=== PATIENT | female | born 1930 | race Caucasian/White ===

== ENCOUNTER → 2017-04-01 | Outpatient (CLI) | payer MEDICARE, BC ==
--- NOTE | 2017-04-02 13:58 | MM ---
Reason for exam: screening (asymptomatic). Last mammogram was performed 1 year ago. History: Patient is postmenopausal. Family history of breast cancer in maternal cousin and breast cancer in paternal grandmother at age 50. Took estrogen for 5 years. Took progesterone for 5 years. Physical Findings: A clinical breast exam by your physician is recommended on an annual basis and results should be correlated with mammographic findings. MG 3D Screening Mammo W/Cad Bilateral CC and MLO view(s) were taken. Prior study comparison: March 29, 2016, bilateral MG 3d screening mammo w/cad. There are scattered fibroglandular densities. Calcifications present bilaterally. No grouped calcifications. No significant changes when compared with prior studies. ASSESSMENT: Benign, BI-RAD 2 RECOMMENDATION: Routine screening mammogram of the right breast in 1 year.
== END | disposition home or self-care (01) ==
LOC: RADMAMWWP 14:33
PROVIDERS: ATTEND Internal Medicine
DX: Z12.31 Encounter for screening mammogram for malignant neoplasm of breast (principal)
CPT/HCPCS: 77063; G0202

== ENCOUNTER → 2017-05-08 | Outpatient (CLI) | payer MEDICARE, BC ==
[2017-05-08 10:49] LABS: ALT 27 U/L (9-52); AST 21 U/L (14-36); Alkaline Phosphatase 70 U/L (38-126); Anion Gap 7 mmol/L; Blood Urea Nitrogen 16 mg/dL (7-17); Calcium 10.5 mg/dL (8.4-10.2); Carbon Dioxide 26 mmol/L (22-30); Chloride 110 mmol/L (98-107); Glucose 81 mg/dL (74-99); Non-African American GFR(MDRD) 53 (>60 ml/min/1.73 sqM); Potassium 4.2 mmol/L (3.5-5.1); Sodium 143 mmol/L (137-145); Total Bilirubin 0.5 mg/dL (0.2-1.3); Total Protein 7.6 g/dL (6.3-8.2)
== END | disposition home or self-care (01) ==
LOC: LABWHC1 09:58
PROVIDERS: ATTEND Internal Medicine Endocrinology, Diabetes & Metabolism
DX: E21.0 Primary hyperparathyroidism (principal); E03.8 Other specified hypothyroidism
CPT/HCPCS: 36415; 80053; 83970; 84443

== ENCOUNTER → 2017-11-06 | Outpatient (CLI) | payer MEDICARE, BC ==
[2017-11-06 16:25] LABS: ALT 24 U/L (9-52); AST 23 U/L (14-36); Albumin 3.3 g/dL (3.5-5.0); Alkaline Phosphatase 65 U/L (38-126); Anion Gap 9 mmol/L; Blood Urea Nitrogen 14 mg/dL (7-17); Calcium 10.3 mg/dL (8.4-10.2); Carbon Dioxide 27 mmol/L (22-30); Chloride 109 mmol/L (98-107); Glucose 95 mg/dL (74-99); Sodium 145 mmol/L (137-145); Total Bilirubin 0.4 mg/dL (0.2-1.3); Total Protein 7.6 g/dL (6.3-8.2)
[2017-11-07 01:04] LABS: Vitamin D 25 Hydroxy 28.5 ng/mL (30.0-100.0)
[2017-11-07 02:20] LABS: Parathyroid Hormone Intact 222.5 pg/mL (14.0-72.0)
== END | disposition home or self-care (01) ==
LOC: LABWHC1 15:31
PROVIDERS: ATTEND Internal Medicine Endocrinology, Diabetes & Metabolism
DX: E03.8 Other specified hypothyroidism (principal); E21.0 Primary hyperparathyroidism
CPT/HCPCS: 36415; 80053; 82306; 83970; 84443

== ENCOUNTER → 2018-04-21 | Outpatient (CLI) | payer MEDICARE, BC ==
[2018-04-21 12:16] LABS: Albumin 3.4 g/dL (3.5-5.0); Calcium 10.7 mg/dL (8.4-10.2); Potassium 4.1 mmol/L (3.5-5.1); Total Bilirubin 0.5 mg/dL (0.2-1.3)
[2018-04-21 16:44] LABS: Parathyroid Hormone Intact 185.7 pg/mL (14.0-72.0); Vitamin D 25 Hydroxy 27.2 ng/mL (30.0-100.0)
== END | disposition home or self-care (01) ==
LOC: LABWHC1 10:58
PROVIDERS: ATTEND Internal Medicine Endocrinology, Diabetes & Metabolism
DX: E21.0 Primary hyperparathyroidism (principal); E03.8 Other specified hypothyroidism
CPT/HCPCS: 36415; 80053; 82306; 83970; 84443

== ENCOUNTER → 2018-10-24 | Outpatient (CLI) | payer MEDICARE, BC ==
[2018-10-24 18:36] LABS: Vitamin D 25 Hydroxy 38.1 ng/mL (30.0-100.0)
[2018-10-24 18:41] LABS: Albumin 3.1 g/dL (3.80-4.90); Albumin/Globulin Ratio 0.76 (1.20-2.10); Anion Gap 3.7 mmol/L (4.00-12.00); Calcium 9.9 mg/dL (8.7-10.3); Carbon Dioxide 27.3 mmol/L (21.6-31.8); Globulin 4.1 g/dL (1.6-3.3); Potassium 3.7 mmol/L (3.5-5.5); Total Bilirubin 0.4 mg/dL (0.2-1.2); Total Protein 7.2 g/dL (6.2-8.2)
== END ==
LOC: LABWHC1 11:34
PROVIDERS: ATTEND Internal Medicine Endocrinology, Diabetes & Metabolism
DX: E21.0 Primary hyperparathyroidism (principal); E03.8 Other specified hypothyroidism
CPT/HCPCS: 36415; 80053; 82306; 83970; 84443

== ENCOUNTER 2018-11-06 22:35 | Emergency (ER) | payer MEDICARE, BC ==
[2018-11-06 22:42] VITALS: TEMP 98.1
--- NOTE | 2018-11-06 23:14 | ED ---
Fall HPI - General Chief Complaint: Fall Stated Complaint: Fall Time Seen by Provider: 11/06/18 22:43 Source: patient Mode of arrival: wheelchair - History of Present Illness Initial Comments: This patient is an 88-year-old woman who presents to be evaluated for injury to the right hip. She states that she had been walking through the house using her walker when she tripped over the wheel. She felt to the right side landing on her hip and right arm. She states that the arm is not having any pain but there is pain in the right hip. The pain is mainly along the lateral aspect and only when she is standing. She states that there is no pain at rest or if she is lying down. She denies any injury to the head or neck, back, chest or abdomen. None of the other extremities have any pain. MD Complaint: fall -: hour(s) Fall From: standing When Fall Occurred: 1-[address] Fall Occurred: home Loss of Consciousness: none Prolonged Down Time?: no Symptoms Prior to Fall: none Severity: mild Quality: aching Context: tripped/slipped Associated Symptoms: denies - Related Data Home Medications Medication Instructions Recorded Confirmed Aspirin 81 mg PO DAILY 06/01/14 11/06/18 Donepezil [Aricept] 10 mg PO DAILY 11/06/18 11/06/18 Ibuprofen [Motrin Ib] 200 mg PO Q4H PRN 11/06/18 11/06/18 Isosorbide Mononitrate ER [Imdur] 60 mg PO DAILY 11/06/18 11/06/18 Levothyroxine Sodium [Synthroid] 75 mcg PO MOTUWETHFRSA 11/06/18 11/06/18 Meloxicam 7.5 mg PO DAILY 11/06/18 11/06/18 traMADol HCL [Ultram] 50 mg PO BID PRN 11/06/18 11/06/18 Allergies Allergy/AdvReac Type Severity Reaction Status Date / Time prednisone Allergy Swelling Verified 11/06/18 22:55 ropinirole HCl [From Requip] Allergy Nausea & Verified 11/06/18 22:55 Vomiting Review of Systems ROS Statement: Those systems with pertinent positive or pertinent negative responses have been documented in the HPI. ROS Other: All systems not noted in ROS Statement are negative. Constitutional: Denies: weakness Eyes: Denies: vision change Respiratory: Denies: dyspnea Cardiovascular: Denies: chest pain, syncope Gastrointestinal: Denies: abdominal pain Musculoskeletal: Reports: arthralgia. 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 History of Any Multi-Drug Resistant Organisms: None Reported Past Surgical History: Cholecystectomy, Tonsillectomy Past Anesthesia/Blood Transfusion Reactions: Motion Sickness Additional Past Anesthesia/Blood Transfusion Reaction / Comment(s): pt stated "hard time coming back out of anesthesia" Past Psychological History: No Psychological Hx Reported Smoking Status: Never smoker Past Alcohol Use History: None Reported Past Drug Use History: None Reported General Exam Limitations: no limitations General appearance: alert, in no apparent distress Head exam: Present: atraumatic, normocephalic Neck exam: Present: normal inspection, full ROM Extremities exam: Present: normal inspection, full ROM, normal capillary refill. Absent: tenderness, pedal edema, calf tenderness Back exam: Present: normal inspection. Absent: vertebral tenderness Neurological exam: Present: alert. Absent: motor sensory deficit Skin exam: Present: warm, dry, intact, normal color. Absent: rash Course Vital Signs 11/06/18 11/06/18 11/07/18 22:38 23:56 01:10 Temperature 98.1 F Pulse Rate 65 64 65 Respiratory 18 16 16 Rate Blood Pressure 197/81 168/85 144/124 O2 Sat by Pulse 99 97 99 Oximetry Disposition Clinical Impression: Fall, Hip injury Disposition: HOME SELF-CARE Condition: Good Instructions: Fall Prevention for Older Adults (ED) Is patient prescribed a controlled substance at d/c from ED?: No Referrals: Alesha Robison MD [Primary Care Provider] - 1-2 days
--- NOTE | 2018-11-06 23:47 | XR ---
EXAMINATION TYPE: XR Hip RT and AP Pelvis DATE OF EXAM: 11/06/2018 COMPARISON: NONE HISTORY: Right hip pain. Fall. TECHNIQUE: A single AP view of the pelvis is obtained. Two views of the right hip are obtained. FINDINGS: The pelvic ring appears intact. I see no definite hip fracture. There is narrowing of hip j oint spaces and more on the right side. Sacroiliac joints are intact. IMPRESSION: No hip fracture seen. Osteoarthritic hip joint space narrowing on the right side.
[2018-11-06 23:58] VITALS: RESP 16
[2018-11-07 01:13] VITALS: PULSE 65
--- NOTE | 2018-11-07 01:13 | CT ---
EXAMINATION TYPE: CT hip RT wo con DATE OF EXAM: 11/07/2018 COMPARISON: None HISTORY: Fall; evaluate for trauma. Hip pain. CT DLP: 353.3 mGycm Automated exposure control for dose reduction was used. FINDINGS: Multiple axial sections were obtained from the level of the mid ileum to the proximal shaft of the fe mur with no contrast. There are small degenerative cysts in the acetabulum. There is hip joint space narrowing. There is sp urring on the femoral head. I see no definite femoral head fracture. There is minor spur formation on the greater trochanter. There is no pathologic fluid collection. The acetabulum appears intact. IMPRESSION: NO HIP FRACTURE SEEN. MODERATE OSTEOARTHRITIS IN THE RIGHT HIP JOINT WITH JOINT SPACE NARROWING AND D EGENERATIVE CYST FORMATION. FEMORAL HEAD SPUR FORMATION.
[2018-11-07 01:30] VITALS: BP 168/85
== END 2018-11-07 01:45 | disposition home or self-care (01) ==
LOC: EC 22:35
DX: S79.911A Unspecified injury of right hip, initial encounter (principal); M19.90 Unspecified osteoarthritis, unspecified site; E07.9 Disorder of thyroid, unspecified; Z85.828 Personal history of other malignant neoplasm of skin; Z79.1 Long term (current) use of non-steroidal anti-inflammatories (NSAID); Z79.899 Other long term (current) drug therapy; Z79.82 Long term (current) use of aspirin; Z88.8 Allergy status to other drugs, medicaments and biological substances; W18.09XA Striking against other object with subsequent fall, initial encounter; Y93.01 Activity, walking, marching and hiking; Y92.009 Unspecified place in unspecified non-institutional (private) residence as the place of occurrence of the external cause
CPT/HCPCS: 73502; 99284

== ENCOUNTER 2018-12-12 23:24 | Inpatient (IN) | payer MEDICARE, BC ==
[2018-12-13] MEDS ORDERED: SODIUM CHLORIDE 0.9% 500 ML 500 ML IV STA (00:01)
[2018-12-13 00:30] LABS: Basophils % (A) 0 %; Eosinophils # (A) 0.1 k/uL (0-0.7); Eosinophils % (A) 2 %; HCT 29.3 % (34.0-46.0); HGB 9.9 gm/dL (11.4-16.0); Lymphocytes # (A) 1.2 k/uL (1.0-4.8); Lymphocytes % (A) 21 %; MCH 34.6 pg (25.0-35.0); MCHC 33.8 g/dL (31.0-37.0); MCV 102.4 fL (80.0-100.0); Macrocytosis Slight; Mean Platelet Volume 6.4; Monocytes # (A) 0.4 k/uL (0-1.0); Monocytes % (A) 7 %; Neutrophils # (A) 3.9 k/uL (1.3-7.7); Neutrophils % (A) 67 %; Platelet Count 224 k/uL (150-450); RBC 2.86 m/uL (3.80-5.40); WBC 5.8 k/uL (3.8-10.6)
[2018-12-13 00:36] LABS: Albumin 3.4 g/dL (3.5-5.0); Magnesium 1.9 mg/dL (1.6-2.3); Potassium 3.5 mmol/L (3.5-5.1); Total Bilirubin 0.6 mg/dL (0.2-1.3)
--- NOTE | 2018-12-13 00:38 | ED ---
General Adult HPI - General Chief complaint: Fall Stated complaint: fall, weakness Time Seen by Provider: 12/12/18 23:42 Source: patient Mode of arrival: wheelchair Limitations: no limitations - History of Present Illness Initial comments: Katty is a pleasant 88 yo female who is brought to the ED today by her daughter for evaluation of generalized weakness. Patient reports that recently she has had no appetite she has not been eating or drinking well she reports that she has occasional bouts of nausea and no desire to eat or drink. She states that yesterday she was walking with her walker when she began to feel very weak, she reports her legs felt like they got all zigzag and then she fell into a sitting position. She states that today she is having some pain in her tailbone. Patient also states she is concerned because she just gotten so weak. Her grandson who is a nurse came over to see her today and stated that he was concerned she was dehydrated and needed to come to the hospital. She reports that she has multiple medical problems and takes no medications. - Related Data Home Medications Medication Instructions Recorded Confirmed Aspirin 81 mg PO DAILY 06/01/14 12/12/18 Donepezil [Aricept] 10 mg PO DAILY 11/06/18 12/12/18 Ibuprofen [Motrin Ib] 200 mg PO Q4H PRN 11/06/18 12/12/18 Isosorbide Mononitrate ER [Imdur] 60 mg PO DAILY 11/06/18 12/12/18 Levothyroxine Sodium [Synthroid] 75 mcg PO MOTUWETHFRSA 11/06/18 12/12/18 Meloxicam 7.5 mg PO DAILY 11/06/18 12/12/18 traMADol HCL [Ultram] 50 mg PO BID PRN 11/06/18 12/12/18 Allergies Allergy/AdvReac Type Severity Reaction Status Date / Time prednisone Allergy Swelling Verified 12/12/18 23:46 ropinirole HCl [From Requip] AdvReac Nausea & Verified 12/12/18 23:46 Vomiting Sulfa (Sulfonamide AdvReac Unknown Verified 12/12/18 23:46 Antibiotics) Review of Systems ROS Statement: Those systems with pertinent positive or pertinent negative responses have been documented in the HPI. ROS Other: All systems not noted in ROS Statement are negative. 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 Patient is nontoxic and well- hydrated and is in no distress. HENT: Normocephalic, Atraumatic. EYES: PERRL, EOMI PULMONARY: Unlabored respirations. No audible rales rhonchi or wheezing was noted. CARDIOVASCULAR: There is a regular rate and rhythm without any murmurs gallops or rubs. ABDOMEN: Soft and nontender with normal bowel sounds. SKIN: Skin is clear with no lesions or rashes and otherwise unremarkable. : Deferred NEUROLOGIC: Patient is alert and oriented x3. Moving all extremities spontaneously MUSCULOSKELETAL: Normal extremities with adequate strength and full range of motion. No lower extremity swelling or edema. No calf tenderness. PSYCHIATRIC: Normal psychiatric evaluation. Limitations: no limitations Limitations: no limitations Course Vital Signs 12/12/18 12/13/18 12/13/18 23:31 00:50 01:17 Temperature 98.6 F Pulse Rate 79 70 74 Respiratory 20 16 16 Rate Blood Pressure 203/101 191/101 185/99 O2 Sat by Pulse 98 92 L Oximetry 12/13/18 01:58 Temperature 97.6 F Pulse Rate 78 Respiratory 17 Rate Blood Pressure 199/94 O2 Sat by Pulse 100 Oximetry EKG Findings - EKG Comments: EKG Findings:: EKG obtained at 12:32 AM rate is 72 rhythm is sinus there is a normal axis there are normal intervals NC 142, QRS 102, QTc is 416. There are no acute ST elevations or depressions is no evidence of acute ischemia or infarction. Medical Decision Making - Medical Decision Making The patient was seen and evaluated history was obtained from the patient and children at bedside Patient appears dehydrated and is complaining of generalized weakness Labs and imaging were ordered labs is some significant abnormalities including acute kidney injury, hypercalcemia X-ray does reveal a superior pubic rami fracture Urinalysis suggestive of urinary tract infection culture will be obtained Rocephin was ordered At this time patient will be admitted for acute kidney injury and hypercalcemia , orthopedic surgery will be consult it for evaluation the superior pubic rami fracture though the patient has been ambulatory since her fall. Altered were updated and are agreeable with this plan. - Lab Data Result diagrams: 12/13/18 00:01 12/12/18 23:55 Lab Results 12/12/18 12/12/18 12/13/18 Range/Units 23:55 23:55 00:01 WBC 5.8 (3.8-10.6) k/uL RBC 2.86 L (3.80-5.40) m/uL Hgb 9.9 L (11.4-16.0) gm/dL Hct 29.3 L (34.0-46.0) % MCV 102.4 H (80.0-100.0) fL MCH 34.6 (25.0-35.0) pg MCHC 33.8 (31.0-37.0) g/dL RDW 14.0 (11.5-15.5) % Plt Count 224 (150-450) k/uL Neutrophils % 67 % Lymphocytes % 21 % Monocytes % 7 % Eosinophils % 2 % Basophils % 0 % Neutrophils # 3.9 (1.3-7.7) k/uL Lymphocytes # 1.2 (1.0-4.8) k/uL Monocytes # 0.4 (0-1.0) k/uL Eosinophils # 0.1 (0-0.7) k/uL Basophils # 0.0 (0-0.2) k/uL Macrocytosis Slight Sodium 136 L (137-145) mmol/L Potassium 3.5 (3.5-5.1) mmol/L Chloride 100 (98-107) mmol/L Carbon Dioxide 30 (22-30) mmol/L Anion Gap 6 mmol/L BUN 36 H (7-17) mg/dL Creatinine 2.36 H (0.52-1.04) mg/dL Est GFR (CKD-EPI)AfAm 21 (>60 ml/min/1.73 sqM) Est GFR (CKD-EPI)NonAf 18 (>60 ml/min/1.73 sqM) Glucose 106 H (74-99) mg/dL Calcium 17.5 H* (8.4-10.2) mg/dL Magnesium 1.9 (1.6-2.3) mg/dL Total Bilirubin 0.6 (0.2-1.3) mg/dL AST 30 (14-36) U/L ALT 20 (9-52) U/L Alkaline Phosphatase 107 (38-126) U/L Creatine Kinase 64 (30-135) U/L Troponin I 0.041 H* (0.000-0.034) ng/mL Total Protein 9.0 H (6.3-8.2) g/dL Albumin 3.4 L (3.5-5.0) g/dL TSH 1.760 (0.465-4.680) mIU/L Urine Color Urine Appearance (Clear) Urine pH (5.0-8.0) Ur Specific Eads (1.001-1.035) Urine Protein (Negative) Urine Glucose (UA) (Negative) Urine Ketones (Negative) Urine Blood (Negative) Urine Nitrite (Negative) Urine Bilirubin (Negative) Urine Urobilinogen (<2.0) mg/dL Ur Leukocyte Esterase (Negative) Urine RBC (0-5) /hpf Urine WBC (0-5) /hpf Ur Squamous Epith Cells (0-4) /hpf Urine Bacteria (None) /hpf Hyaline Casts (0-2) /lpf Urine Mucus (None) /hpf 12/13/18 Range/Units 00:25 WBC (3.8-10.6) k/uL RBC (3.80-5.40) m/uL Hgb (11.4-16.0) gm/dL Hct (34.0-46.0) % MCV (80.0-100.0) fL MCH (25.0-35.0) pg MCHC (31.0-37.0) g/dL RDW (11.5-15.5) % Plt Count (150-450) k/uL Neutrophils % % Lymphocytes % % Monocytes % % Eosinophils % % Basophils % % Neutrophils # (1.3-7.7) k/uL Lymphocytes # (1.0-4.8) k/uL Monocytes # (0-1.0) k/uL Eosinophils # (0-0.7) k/uL Basophils # (0-0.2) k/uL Macrocytosis Sodium (137-145) mmol/L Potassium (3.5-5.1) mmol/L Chloride (98-107) mmol/L Carbon Dioxide (22-30) mmol/L Anion Gap mmol/L BUN (7-17) mg/dL Creatinine (0.52-1.04) mg/dL Est GFR (CKD-EPI)AfAm (>60 ml/min/1.73 sqM) Est GFR (CKD-EPI)NonAf (>60 ml/min/1.73 sqM) Glucose (74-99) mg/dL Calcium (8.4-10.2) mg/dL Magnesium (1.6-2.3) mg/dL Total Bilirubin (0.2-1.3) mg/dL AST (14-36) U/L ALT (9-52) U/L Alkaline Phosphatase (38-126) U/L Creatine Kinase (30-135) U/L Troponin I (0.000-0.034) ng/mL Total Protein (6.3-8.2) g/dL Albumin (3.5-5.0) g/dL TSH (0.465-4.680) mIU/L Urine Color Light Yellow Urine Appearance Cloudy H (Clear) Urine pH 5.5 (5.0-8.0) Ur Specific Eads 1.011 (1.001-1.035) Urine Protein Trace H (Negative) Urine Glucose (UA) Negative (Negative) Urine Ketones Negative (Negative) Urine Blood Small H (Negative) Urine Nitrite Positive H (Negative) Urine Bilirubin Negative (Negative) Urine Urobilinogen <2.0 (<2.0) mg/dL Ur Leukocyte Esterase Large H (Negative) Urine RBC 2 (0-5) /hpf Urine WBC 45 H (0-5) /hpf Ur Squamous Epith Cells 3 (0-4) /hpf Urine Bacteria Few H (None) /hpf Hyaline Casts 3 H (0-2) /lpf Urine Mucus Rare H (None) /hpf Disposition Clinical Impression: Acute kidney injury, Hypercalcemia, Dehydration, Urinary tract infection, Fracture of superior pubic ramus, Fall Disposition: ADMITTED IP TO THIS HOSP Condition: Serious Is patient prescribed a controlled substance at d/c from ED?: No
[2018-12-13 00:39] LABS: Appearance,Urine Cloudy (Clear); Bacteria,Urine Few /hpf; Bilirubin,Urine Negative (Negative); Blood,Urine Small (Negative); Color,Urine Light Yellow; Glucose,Urine (UA) Negative (Negative); Hyaline Casts,Urine 3 /lpf (0-2); Ketones,Urine Negative (Negative); Leukocyte Esterase,Urine Large (Negative); Mucus,Urine Rare /hpf; Nitrite,Urine Positive (Negative); PH, Urine 5.5 (5.0-8.0); Protein,Urine Trace (Negative); RBC,Urine 2 /hpf (0-5); Specific Gravity,Urine 1.011 (1.001-1.035); Squamous Epithelial Cell,Urine 3 /hpf (0-4); Urobilinogen,Urine <2.0 mg/dL (<2.0)
[2018-12-13 00:51] LABS: Calcium 17.5 mg/dL (8.4-10.2)
--- NOTE | 2018-12-13 01:10 | XR ---
EXAM: XR Sacrum and Coccyx, 2 or more Views CLINICAL HISTORY: ITS.REASON XR Reason: fall, pain TECHNIQUE: Frontal and lateral views of the sacrum and coccyx. COMPARISON: None. FINDINGS: Sacrum/coccyx: Unremarkable as visualized. No acute fracture. Vertebrae: Osteoporosis. Disc spaces: Degenerative changes seen in the lower lumbar spine. Other bones/joints: Right superior pubic ramus fracture. Soft tissues: Unremarkable. IMPRESSION: Right superior pubic ramus fracture. Consider evaluation with CT if there is persistent clinical concern for sacrum or coccyx fracture.
--- NOTE | 2018-12-13 01:12 | XR ---
EXAM: XR Lumbar Spine, 2 or 3 Views CLINICAL HISTORY: ITS.REASON XR Reason: Pain TECHNIQUE: Frontal and lateral views of the lumbar spine. COMPARISON: None. FINDINGS: Vertebrae: Osteoporosis. No acute fracture. Normal alignment. Disc spaces: Multilevel degenerative disc disease and facet arthrosis is seen throughout the lumbar spine. Soft tissues: Cholecystectomy clips in the right upper quadrant. IMPRESSION: 1. No definite fracture identified. If there is clinical concern for lumbar spine fracture, recommend evaluation with CT. 2. Multilevel degenerative change of the lumbar spine.
[2018-12-13] MEDS ORDERED: SODIUM CHLORIDE 0.9% 1,000 ML IV ONE (01:22)
[2018-12-13 01:52] LABS: INR 0.9 (<1.2)
[2018-12-13] MEDS ORDERED: cloNIDine HCL 0.1 MG TAB PO STA (02:01)
[2018-12-13 02:10] LABS: Partial Thromboplastin Time 17.8 sec (22.0-30.0)
[2018-12-13] MEDS ORDERED: METOPROLOL TARTRATE 5 MG/5 ML VIAL IVP STA (02:58)
[2018-12-13] MEDS: SODIUM CHLORIDE 0.9% 1,000 ML IV SCH ×3 (04:50→20:55)
[2018-12-13] MEDS: LEVOTHYROXINE 75 MCG TAB PO SCH (06:44)
[2018-12-13] MEDS: ASPIRIN 81 MG PO SCH (08:57)
[2018-12-13] MEDS: ISOSORBIDE MONONITRATE ER 60 MG TAB.ER.24H PO SCH (08:57)
[2018-12-13] MEDS: DONEPEZIL 10 MG TAB PO SCH (08:57)
--- NOTE | 2018-12-13 10:10 | P.CNOR ---
<Emily Talley - Last Filed: 12/13/18 11:24> History of Present Illness - [facility] Consult date: 12/13/18 Consult reason: fracture (Right superior pubic rami fracture) History of present illness: The patient is a pleasant 88-year-old female who presented to the emergency department after experiencing generalized weakness and a fall at home. The patient states that her legs became weak and she fell into a seated position. She was using a walker at the time. The patient states that her grandson is a nurse and he suggested her to come into the hospital for further evaluation of her weakness and possible dehydration. X-ray of the sacrum and coccyx revealed a right superior pubic rami fracture and she was also found to have acute kidney injury and UTI. She was admitted for further evaluation by internal medicine and orthopedic surgery. We're consulted for further management of her superior pubic rami fracture. The patient states that she sees Dr. Roche for her bladder issues and has had multiple UTIs in the past. Today, the patient states that she has no pain at this time laying in bed. She has not tried to get out of bed since admission. She denies any other injuries from the fall including head/neck and her other extremities. She fell in October 2018 and was evaluated in the emergency department where x- rays and CT were performed of the right hip. No fractures were seen at that time. 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 History of Any Multi-Drug Resistant Organisms: None Reported Past Surgical History: Cholecystectomy, Tonsillectomy Past Anesthesia/Blood Transfusion Reactions: Motion Sickness Additional Past Anesthesia/Blood Transfusion Reaction / Comm: pt stated "hard time coming back out of anesthesia" Past Psychological History: No Psychological Hx Reported Smoking Status: Never smoker Past Alcohol Use History: None Reported Past Drug Use History: None Reported - Past Family History Mother Family Medical History: CVA/TIA Father Family Medical History: Cancer, Prostate Disorder Medications and Allergies Home Medications Medication Instructions Recorded Confirmed Type Aspirin 81 mg PO DAILY 06/01/14 12/12/18 History Donepezil [Aricept] 10 mg PO DAILY 11/06/18 12/12/18 History Ibuprofen [Motrin Ib] 200 mg PO Q4H PRN 11/06/18 12/12/18 History Isosorbide Mononitrate ER [Imdur] 60 mg PO DAILY 11/06/18 12/12/18 History Levothyroxine Sodium [Synthroid] 75 mcg PO MOTUWETHFRSA 11/06/18 12/12/18 History Meloxicam 7.5 mg PO DAILY 11/06/18 12/12/18 History traMADol HCL [Ultram] 50 mg PO BID PRN 11/06/18 12/12/18 History Allergies Allergy/AdvReac Type Severity Reaction Status Date / Time prednisone Allergy Swelling Verified 12/12/18 23:46 ropinirole HCl [From Requip] AdvReac Nausea & Verified 12/12/18 23:46 Vomiting Sulfa (Sulfonamide AdvReac Unknown Verified 12/12/18 23:46 Antibiotics) Physical Examination The patient is an 88 year old female that is no acute distress. She is alert and oriented x2. The patient's head is normocephalic and atraumatic. Exam of the cervical spine reveals no pain upon palpation or range of motion, no step- offs noted. Exam of the bilateral upper extremities reveal no obvious deformities or pain upon range of motion. Exam of the left lower extremity reveals no pain upon palpation. Exam of the right lower extremity reveals no obvious deformity. No pain upon palpation to the lateral hip. There is very slight pain upon logrolling and any range of motion of the leg. No pain on anterior pressure of the pelvis. No pain at SI joints. Bilateral calves are soft and nontender. Patient has good foot and ankle motion bilaterally. Neurological and circulatory status is intact. Results X-rays of the sacrum and coccyx dated 12/13/2017 reveals a healing nondisplaced right superior pubic rami and possible healing inferior pubic rami fracture. Pelvic ring appears to be intact. X-rays of the lumbar spine dated 12/13/2017 reveals no definite fracture seen. Multilevel degenerative changes throughout the lumbar spine. X-rays and CT of the right hip and pelvis from November 06 and 2018 revealed a lucency in the right superior and inferior pubic rami, which was not read by the radiologist. - Labs Labs: Abnormal Lab Results - Last 24 Hours (Table) 12/12/18 12/12/18 12/13/18 Range/Units 23:55 23:55 00:01 RBC 2.86 L (3.80-5.40) m/uL Hgb 9.9 L (11.4-16.0) gm/dL Hct 29.3 L (34.0-46.0) % MCV 102.4 H (80.0-100.0) fL APTT (22.0-30.0) sec Sodium 136 L (137-145) mmol/L BUN 36 H (7-17) mg/dL Creatinine 2.36 H (0.52-1.04) mg/dL Glucose 106 H (74-99) mg/dL Calcium 17.5 H* (8.4-10.2) mg/dL Troponin I 0.041 H* (0.000-0.034) ng/mL Total Protein 9.0 H (6.3-8.2) g/dL Albumin 3.4 L (3.5-5.0) g/dL Urine Appearance (Clear) Urine Protein (Negative) Urine Blood (Negative) Urine Nitrite (Negative) Ur Leukocyte Esterase (Negative) Urine WBC (0-5) /hpf Urine Bacteria (None) /hpf Hyaline Casts (0-2) /lpf Urine Mucus (None) /hpf 12/13/18 12/13/18 Range/Units 00:25 01:10 RBC (3.80-5.40) m/uL Hgb (11.4-16.0) gm/dL Hct (34.0-46.0) % MCV (80.0-100.0) fL APTT 17.8 L (22.0-30.0) sec Sodium (137-145) mmol/L BUN (7-17) mg/dL Creatinine (0.52-1.04) mg/dL Glucose (74-99) mg/dL Calcium (8.4-10.2) mg/dL Troponin I (0.000-0.034) ng/mL Total Protein (6.3-8.2) g/dL Albumin (3.5-5.0) g/dL Urine Appearance Cloudy H (Clear) Urine Protein Trace H (Negative) Urine Blood Small H (Negative) Urine Nitrite Positive H (Negative) Ur Leukocyte Esterase Large H (Negative) Urine WBC 45 H (0-5) /hpf Urine Bacteria Few H (None) /hpf Hyaline Casts 3 H (0-2) /lpf Urine Mucus Rare H (None) /hpf H & H 12/13/18 Range/Units 00:01 Hgb 9.9 L (11.4-16.0) gm/dL Hct 29.3 L (34.0-46.0) % Coagulation 12/13/18 Range/Units 01:10 INR 0.9 (<1.2) Result Diagrams: 12/13/18 00:01 12/12/18 23:55 Assessment and Plan (1) Acute kidney injury Current Visit: Yes Status: Acute Code(s): N17.9 - ACUTE KIDNEY FAILURE, UNSPECIFIED SNOMED Code(s): 77406157 (2) Dehydration Current Visit: Yes Status: Acute Code(s): E86.0 - DEHYDRATION SNOMED Code( s): 84389828 (3) Fall Current Visit: Yes Status: Acute Code(s): W19.XXXA - UNSPECIFIED FALL, INITIAL ENCOUNTER SNOMED Code(s): 9276460 (4) Fracture of superior pubic ramus Current Visit: Yes Status: Acute Code(s): S32.519A - FRACTURE OF SUPERIOR RIM OF UNSP PUBIS, INIT FOR CLOS FX SNOMED Code(s): 174137819 (5) Urinary tract infection Current Visit: Yes Status: Acute Code(s): N39.0 - URINARY TRACT INFECTION, SITE NOT SPECIFIED SNOMED Code(s): 15075503 Plan: The clinical and x-ray findings were discussed with the patient. No family is at the bedside this morning. The case was also discussed with Dr. Aguillon. The fractures are subacute and healing is noted. No surgical intervention is warranted at this time. Physical and occupational therapy has been ordered. She may weight-bear as tolerated to the right lower extremity. Pain control with either Ultram or Tylenol. The patient may need skilled rehab upon discharge depending on ambulatory status. We will continue to follow along with internal medicine make further recommendations as needed. <Jaquan Aguillon - Last Filed: 12/13/18 13:27> Results - Labs Labs: Abnormal Lab Results - Last 24 Hours (Table) 12/12/18 12/12/18 12/13/18 Range/Units 23:55 23:55 00:01 RBC 2.86 L (3.80-5.40) m/uL Hgb 9.9 L (11.4-16.0) gm/dL Hct 29.3 L (34.0-46.0) % MCV 102.4 H (80.0-100.0) fL APTT (22.0-30.0) sec Sodium 136 L (137-145) mmol/L BUN 36 H (7-17) mg/dL Creatinine 2.36 H (0.52-1.04) mg/dL Glucose 106 H (74-99) mg/dL Calcium 17.5 H* (8.4-10.2) mg/dL Troponin I 0.041 H* (0.000-0.034) ng/mL Total Protein 9.0 H (6.3-8.2) g/dL Albumin 3.4 L (3.5-5.0) g/dL Urine Appearance (Clear) Urine Protein (Negative) Urine Blood (Negative) Urine Nitrite (Negative) Ur Leukocyte Esterase (Negative) Urine WBC (0-5) /hpf Urine Bacteria (None) /hpf Hyaline Casts (0-2) /lpf Urine Mucus (None) /hpf 12/13/18 12/13/18 Range/Units 00:25 01:10 RBC (3.80-5.40) m/uL Hgb (11.4-16.0) gm/dL Hct (34.0-46.0) % MCV (80.0-100.0) fL APTT 17.8 L (22.0-30.0) sec Sodium (137-145) mmol/L BUN (7-17) mg/dL Creatinine (0.52-1.04) mg/dL Glucose (74-99) mg/dL Calcium (8.4-10.2) mg/dL Troponin I (0.000-0.034) ng/mL Total Protein (6.3-8.2) g/dL Albumin (3.5-5.0) g/dL Urine Appearance Cloudy H (Clear) Urine Protein Trace H (Negative) Urine Blood Small H (Negative) Urine Nitrite Positive H (Negative) Ur Leukocyte Esterase Large H (Negative) Urine WBC 45 H (0-5) /hpf Urine Bacteria Few H (None) /hpf Hyaline Casts 3 H (0-2) /lpf Urine Mucus Rare H (None) /hpf Microbiology - Last 24 Hours (Table) 12/13/18 00:25 Urine Culture - Preliminary Urine,Voided H & H 12/13/18 Range/Units 00:01 Hgb 9.9 L (11.4-16.0) gm/dL Hct 29.3 L (34.0-46.0) % Coagulation 12/13/18 Range/Units 01:10 INR 0.9 (<1.2) Result Diagrams: 12/13/18 00:01 12/12/18 23:55 Assessment and Plan Plan: Reviewed and discussed with Gildardo Talley -- agree with above. The patient was also seen and examined by myself. She states the pain is improving but still has discomfort when ambulating. Still requiring the assistance of a walker. PE: Pelvis is stable to AP and lateral compression-minimal pain with stress. Mild discomfort with circumduction of the right hip. Assessment: Healing right superior and inferior pubic rami fractures Plan: I discussed the radiographic findings with the patient and her daughter. These are stable fractures which show good healing. I recommended continuing physical therapy and weightbearing as tolerated with a walker. I feel she would benefit from some time in a skilled rehab facility for continued therapy, strengthening and gait training. They were in agreement with this plan. Thank you for allowing us to participate in the care of this patient.
[2018-12-13 13:06] LABS: Potassium 3.6 mmol/L (3.5-5.1)
[2018-12-13 13:22] LABS: Calcium 15.3 mg/dL (8.4-10.2)
--- NOTE | 2018-12-13 15:57 | P.HPIM ---
History of Present Illness H&P Date: 12/13/18 Chief Complaint: Fall/weakness 88 yo female who is brought to the ED today by her daughter for evaluation of generalized weakness. Patient reports that recently she has had no appetite she has not been eating or drinking well she reports that she has occasional bouts of nausea and no desire to eat or drink. She states that yesterday she was walking with her walker when she began to feel very weak, she reports her legs felt like they got all zigzag and then she fell into a sitting position. She states that today she is having some pain in her tailbone. Patient also states she is concerned because she just gotten so weak. Her grandson who is a nurse came over to see her today and stated that he was concerned she was dehydrated and needed to come to the hospital. She reports that she has multiple medical problems and takes no medications. 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 History of Any Multi-Drug Resistant Organisms: None Reported Past Surgical History: Cholecystectomy, Tonsillectomy Past Anesthesia/Blood Transfusion Reactions: Motion Sickness Additional Past Anesthesia/Blood Transfusion Reaction / Comment(s): pt stated "hard time coming back out of anesthesia" Past Psychological History: No Psychological Hx Reported Smoking Status: Never smoker Past Alcohol Use History: None Reported Past Drug Use History: None Reported - Past Family History Mother Family Medical History: CVA/TIA Father Family Medical History: Cancer, Prostate Disorder Medications and Allergies Home Medications Medication Instructions Recorded Confirmed Type Aspirin 81 mg PO DAILY 06/01/14 12/12/18 History Donepezil [Aricept] 10 mg PO DAILY 11/06/18 12/12/18 History Ibuprofen [Motrin Ib] 200 mg PO Q4H PRN 11/06/18 12/12/18 History Isosorbide Mononitrate ER [Imdur] 60 mg PO DAILY 11/06/18 12/12/18 History Levothyroxine Sodium [Synthroid] 75 mcg PO MOTUWETHFRSA 11/06/18 12/12/18 History Meloxicam 7.5 mg PO DAILY 11/06/18 12/12/18 History traMADol HCL [Ultram] 50 mg PO BID PRN 11/06/18 12/12/18 History Allergies Allergy/AdvReac Type Severity Reaction Status Date / Time prednisone Allergy Swelling Verified 12/12/18 23:46 ropinirole HCl [From Requip] AdvReac Nausea & Verified 12/12/18 23:46 Vomiting Sulfa (Sulfonamide AdvReac Unknown Verified 12/12/18 23:46 Antibiotics) Physical Exam Vitals: Vital Signs Temp Pulse Pulse Resp BP BP Pulse Ox 12/13/18 11:00 98.2 F 58 L 18 167/75 97 12/13/18 08:35 98.1 F 71 18 162/74 98 12/13/18 04:00 97.9 F 68 18 147/73 98 12/13/18 02:59 98.0 F 70 14 167/86 99 12/13/18 02:45 176/115 12/13/18 02:30 97.9 F 67 18 98 12/13/18 02:25 74 16 191/101 98 12/13/18 01:58 97.6 F 78 17 199/94 100 12/13/18 01:17 74 16 185/99 92 L 12/13/18 00:50 70 16 191/101 12/12/18 23:31 98.6 F 79 20 203/101 98 Intake and Output 12/12/18 12/13/18 12/13/18 22:59 06:59 14:59 Other: Voiding Method Bedpan # Voids 2 Weight 57 kg 57 kg PHYSICAL EXAMINATION: GENERAL: The patient is alert and oriented x3, not in any acute distress. Well developed, well nourished. HEENT: Pupils are round and equally reacting to light. EOMI. No scleral icterus. No conjunctival pallor. Normocephalic, atraumatic. No pharyngeal erythema. No thyromegaly. CARDIOVASCULAR: S1 and S2 present. No murmurs, rubs, or gallops. PULMONARY: Chest is clear to auscultation, no wheezing or crackles. ABDOMEN: Soft, nontender, nondistended, normoactive bowel sounds. No palpable organomegaly. MUSCULOSKELETAL: No joint swelling or deformity. EXTREMITIES: No cyanosis, clubbing, or pedal edema. NEUROLOGICAL: Gross neurological examination did not reveal any focal deficits. SKIN: No rashes. Results CBC & Chem 7: 12/13/18 00:01 12/13/18 12:26 Labs: Abnormal Lab Results - Last 24 Hours (Table) 12/12/18 12/12/18 12/13/18 Range/Units 23:55 23:55 00:01 RBC 2.86 L (3.80-5.40) m/uL Hgb 9.9 L (11.4-16.0) gm/dL Hct 29.3 L (34.0-46.0) % MCV 102.4 H (80.0-100.0) fL APTT (22.0-30.0) sec Sodium 136 L (137-145) mmol/L BUN 36 H (7-17) mg/dL Creatinine 2.36 H (0.52-1.04) mg/dL Glucose 106 H (74-99) mg/dL Calcium 17.5 H* (8.4-10.2) mg/dL Troponin I 0.041 H* (0.000-0.034) ng/mL Total Protein 9.0 H (6.3-8.2) g/dL Albumin 3.4 L (3.5-5.0) g/dL Urine Appearance (Clear) Urine Protein (Negative) Urine Blood (Negative) Urine Nitrite (Negative) Ur Leukocyte Esterase (Negative) Urine WBC (0-5) /hpf Urine Bacteria (None) /hpf Hyaline Casts (0-2) /lpf Urine Mucus (None) /hpf 12/13/18 12/13/18 Range/Units 00:25 01:10 RBC (3.80-5.40) m/uL Hgb (11.4-16.0) gm/dL Hct (34.0-46.0) % MCV (80.0-100.0) fL APTT 17.8 L (22.0-30.0) sec Sodium (137-145) mmol/L BUN (7-17) mg/dL Creatinine (0.52-1.04) mg/dL Glucose (74-99) mg/dL Calcium (8.4-10.2) mg/dL Troponin I (0.000-0.034) ng/mL Total Protein (6.3-8.2) g/dL Albumin (3.5-5.0) g/dL Urine Appearance Cloudy H (Clear) Urine Protein Trace H (Negative) Urine Blood Small H (Negative) Urine Nitrite Positive H (Negative) Ur Leukocyte Esterase Large H (Negative) Urine WBC 45 H (0-5) /hpf Urine Bacteria Few H (None) /hpf Hyaline Casts 3 H (0-2) /lpf Urine Mucus Rare H (None) /hpf Microbiology - Last 24 Hours (Table) 12/13/18 00:25 Urine Culture - Preliminary Urine,Voided Thrombosis Risk Factor Assmnt - Choose All That Apply Each Risk Factor Represents 3 Points: Age 75 years or older Each Risk Factor Represents 5 Points: Hip, pelvis, or leg fracture (< 1 month) Thrombosis Risk Factor Assessment Total Risk Factor Score: 8 Thrombosis Risk Factor Assessment Level: High Risk Assessment and Plan Assessment: 1. Acute renal failure/dehydration - Start patient on IV fluid hydration with normal saline at 100 mL an hour - Monitor strict TINO's, daily weights, renal function and electrolytes; avoid hypotension and nephrotoxins - Consult nephrology 2. Marked hypercalcemia - Possibly secondary to dehydration; continue with IV fluids - We will order intact parathormone levels 3. Fall/fracture superior pubic ramus - Orthopedic recommendations are noted and appreciated - Possibly subacute fracture which is healing well - Consult PT/OT for weightbearing as tolerated to right lower extremity - Pain controlled with Tylenol/Ultram 4. UTI; - Patient remains on IV Rocephin 1 g daily - Urine and blood cultures are done and pending 5. Hypothyroidism; continue with home dose of levothyroxine 6. DVT prophylaxis; SCDs CODE STATUS; DO NOT RESUSCITATE
[2018-12-14 06:28] LABS: Basophils % (A) 1 %; Eosinophils # (A) 0.1 k/uL (0-0.7); Eosinophils % (A) 3 %; HCT 26.3 % (34.0-46.0); HGB 8.6 gm/dL (11.4-16.0); Lymphocytes # (A) 1.1 k/uL (1.0-4.8); Lymphocytes % (A) 23 %; MCH 34.4 pg (25.0-35.0); MCHC 32.6 g/dL (31.0-37.0); MCV 105.3 fL (80.0-100.0); Macrocytosis Moderate; Mean Platelet Volume 7.3; Monocytes # (A) 0.3 k/uL (0-1.0); Monocytes % (A) 7 %; Neutrophils % (A) 64 %; Platelet Count 158 k/uL (150-450); RBC 2.49 m/uL (3.80-5.40); RDW 14.3 % (11.5-15.5); WBC 4.7 k/uL (3.8-10.6)
[2018-12-14 06:51] LABS: Potassium 3.7 mmol/L (3.5-5.1)
[2018-12-14 07:10] LABS: Calcium 14.7 mg/dL (8.4-10.2)
[2018-12-14] MEDS: ASPIRIN 81 MG PO SCH (08:26)
[2018-12-14] MEDS: ISOSORBIDE MONONITRATE ER 60 MG TAB.ER.24H PO SCH (08:26)
[2018-12-14] MEDS: DONEPEZIL 10 MG TAB PO SCH (08:26)
[2018-12-14] MEDS: SODIUM CHLORIDE 0.9% 1,000 ML IV SCH ×2 (08:34→11:11)
[2018-12-14] MEDS ORDERED: SODIUM CHLORIDE 0.9% 1,000 ML IV SCH (08:45)
--- NOTE | 2018-12-14 09:10 | P.NPCON ---
History of Present Illness - Reason for Consult Consult date: 12/14/18 acute renal failure - Chief Complaint Hypercalcemia and acute kidney - History of Present Illness This is a 88-year-old female seen in consultation because of severe hypercalcemia, calcium 17.5, acute kidney injury. She was admitted with generalized weakness loss of appetite. She is awake and alert but somewhat forgetful. She has constipation otherwise denies any other symptoms. No somnolence, no fever chills. Her medications included meloxicam and ibuprofen. She is not on any vitamin D preparations or calcium tablets. Denies any nausea vomiting diarrhea fever chills cough abdominal pain. Past history significant for hyperparathyroidism, hypercalcemia with calcium being highest at 10.7 previously and has had high calciums at least since 2015. The highest calcium prior to this is 10.7. PTH has been high as 282 being the highest several labs show high PTH in the 200 range. A DEXA scan shows osteoporosis. No history of kidney stones or cataract. No history of depression. Nuclear medicine scan shows possible right adenoma. 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 History of Any Multi-Drug Resistant Organisms: None Reported Past Surgical History: Cholecystectomy, Tonsillectomy Past Anesthesia/Blood Transfusion Reactions: Motion Sickness Additional Past Anesthesia/Blood Transfusion Reaction / Comment(s): pt stated "hard time coming back out of anesthesia" Past Psychological History: No Psychological Hx Reported Smoking Status: Never smoker Past Alcohol Use History: None Reported Past Drug Use History: None Reported - Past Family History Mother Family Medical History: CVA/TIA Father Family Medical History: Cancer, Prostate Disorder Medications and Allergies Home Medications Medication Instructions Recorded Confirmed Type Aspirin 81 mg PO DAILY 06/01/14 12/12/18 History Donepezil [Aricept] 10 mg PO DAILY 11/06/18 12/12/18 History Ibuprofen [Motrin Ib] 200 mg PO Q4H PRN 11/06/18 12/12/18 History Isosorbide Mononitrate ER [Imdur] 60 mg PO DAILY 11/06/18 12/12/18 History Levothyroxine Sodium [Synthroid] 75 mcg PO MOTUWETHFRSA 11/06/18 12/12/18 History Meloxicam 7.5 mg PO DAILY 11/06/18 12/12/18 History traMADol HCL [Ultram] 50 mg PO BID PRN 11/06/18 12/12/18 History Allergies Allergy/AdvReac Type Severity Reaction Status Date / Time prednisone Allergy Swelling Verified 12/12/18 23:46 ropinirole HCl [From Requip] AdvReac Nausea & Verified 12/12/18 23:46 Vomiting Sulfa (Sulfonamide AdvReac Unknown Verified 12/12/18 23:46 Antibiotics) Physical Exam Vitals: Vital Signs Temp Pulse Resp BP Pulse Ox 12/14/18 08:31 171/74 12/14/18 07:56 67 18 12/14/18 07:55 98.0 F 67 18 197/71 96 12/14/18 02:30 98.0 F 83 18 179/80 97 12/14/18 00:00 97.0 F L 80 17 147/87 98 12/13/18 20:00 97.3 F L 78 16 154/91 99 12/13/18 15:15 98.0 F 73 18 153/73 97 12/13/18 11:00 98.2 F 58 L 18 167/75 97 Intake and Output 12/13/18 12/14/18 12/14/18 22:59 06:59 14:59 Intake Total 200 10 Balance 200 10 Intake: IV 10 Invasive Line 1 10 Intake, IV Titration 200 Amount Sodium Chloride 0.9% 1, 200 000 ml @ 100 mls/hr IV . Q10H [facility] Rx#:[id number] Other: Voiding Method Bedpan Bedpan Bedpan Weight 57 kg On examination she is awake alert but somewhat forgetful she is oriented 3. HEENT exam no JVP neck is supple no facial asymmetry no lymphadenopathy thyromegaly Lungs are clear to auscultation and good air entry bilaterally Heart sounds are unremarkable for any murmur rub gallop Abdomen soft nontender no masses felt Extremity exam was no edema Logically awake alert oriented but forgetful as to the details of her history and extent of workup for her hyper parathyroidism Results - Lab Results Most recent lab results Calcium 14.7 mg/dL (8.4-10.2) H* 12/14/18 05:29 Magnesium 1.9 mg/dL (1.6-2.3) 12/12/18 23:55 12/14/18 05:29 12/14/18 05:29 Assessment and Plan Assessment: Impression 1. Severe hypercalcemia, calcium is 17.5, with chronic hypercalcemia previous calcium being 10.7 at its highest since 2014. Likely etiologies hyperparathyroidism. PTH has been highest at 282 on 11/07/2016 but there are several labs that show high PTH levels. Admission PT is though was 29.6 which is transiently suppressed because of the severe hypercalcemia 2. Acute kidney injury secondary to hypercalcemia. Additional element of nonsteroidal-induced acute kidney injury she is on meloxicam and ibuprofen. 3. Osteoporosis by a DEXA scan Recommendation. 1. Continue IV normal saline at 100 and hour with close follow-up of intake and output so as not to put her in congestive heart failure. 2. If necessary will use Lasix. 3. We'll try Symptomatic Sensipar if it is available here as a temporary measure to reduce her PTH. 4. Considering her age a parathyroidectomy may not be beneficial but given the hypercalcemia of 17.5 consideration has to be given for surgery. We will see how she reacts to the calcium intake as well as to IV saline and reassess
--- NOTE | 2018-12-14 09:55 | P.PN ---
Subjective Progress Note Date: 12/14/18 Principal diagnosis: Healing superior and inferior pubic rami fractures This is an 88 year-old female who was admitted to the hospital with generalized weakness and inability to ambulate. She was found to have a superior pubic rami fracture during her evaluation in the emergency department she was admitted for further evaluation by internal medicine and orthopedics. Upon review of the films and CT from October 2017, there is a superior and inferior pubic rami fracture that appears to be subacute and currently healing. The patient was evaluated while sitting in the recliner chair at the bedside today. The patient denies nausea, vomiting, abdominal pain, shortness of breath, and chest pain this morning. She states her pain is controlled at this time. Therapy has not worked with her yet. Internal medicine and Nephrology are also following the patient. Objective - Vital Signs Vital signs: Vital Signs Temp 98.0 F 12/14/18 07:55 Pulse 67 12/14/18 07:56 Resp 18 12/14/18 07:56 BP 171/74 12/14/18 08:31 Pulse Ox 96 12/14/18 07:55 Intake & Output 12/13/18 12/14/18 12/14/18 18:59 06:59 18:59 Intake Total 1980 200 10 Balance 1979 200 10 Weight 57 kg 57 kg Intake: IV 10 Invasive Line 1 10 Intake, IV Titration 900 200 Amount Sodium Chloride 0.9% 1, 800 200 000 ml @ 100 mls/hr IV . Q10H [facility] Rx#:[id number] cefTRIAXone 1 gm In 100 Sodium Chloride 0.9% 50 ml @ 100 mls/hr IVPB [facility] Rx#:[id number] Oral 1080 Other: Voiding Method Bedpan Bedpan # Voids 1 - Exam The patient is an 88 year old female that is no acute distress. She is alert and oriented x2. The patient's head is normocephalic and atraumatic. Exam of the left lower extremity reveals no pain upon palpation or ROM. Exam of the right lower extremity reveals no obvious deformity. No pain upon palpation to the lateral hip. There is very slight pain upon logrolling and any range of motion of the leg. Minimal pain on anterior or lateral compression of the pelvis. No pain at the SI joints. Bilateral calves are soft and nontender. Patient has good foot and ankle motion bilaterally. Neurological and circulatory status is intact. - Labs CBC & Chem 7: 12/14/18 05:29 12/14/18 05:29 Labs: Abnormal Lab Results - Last 24 Hours (Table) 12/13/18 12/14/18 12/14/18 Range/Units 12:26 05:29 05:29 RBC 2.49 L (3.80-5.40) m/uL Hgb 8.6 L (11.4-16.0) gm/dL Hct 26.3 L (34.0-46.0) % MCV 105.3 H (80.0-100.0) fL Chloride 108 H (98-107) mmol/L BUN 32 H 32 H (7-17) mg/dL Creatinine 2.08 H 1.93 H (0.52-1.04) mg/dL Glucose 103 H (74-99) mg/dL Calcium 15.3 H* 14.7 H* (8.4-10.2) mg/dL Microbiology - Last 24 Hours (Table) 12/13/18 00:25 Urine Culture - Preliminary Urine,Voided Assessment and Plan (1) Acute kidney injury Current Visit: Yes Status: Acute Code(s): N17.9 - ACUTE KIDNEY FAILURE, UNSPECIFIED SNOMED Code(s): 60911865 (2) Dehydration Current Visit: Yes Status: Acute Code(s): E86.0 - DEHYDRATION SNOMED Code( s): 30974412 (3) Fall Current Visit: Yes Status: Acute Code(s): W19.XXXA - UNSPECIFIED FALL, INITIAL ENCOUNTER SNOMED Code(s): 1116604 (4) Fracture of superior pubic ramus Current Visit: Yes Status: Acute Code(s): S32.519A - FRACTURE OF SUPERIOR RIM OF UNSP PUBIS, INIT FOR CLOS FX SNOMED Code(s): 141288980 (5) Urinary tract infection Current Visit: Yes Status: Acute Code(s): N39.0 - URINARY TRACT INFECTION, SITE NOT SPECIFIED SNOMED Code(s): 59024344 Plan: The clinical and x-ray findings were discussed with the patient. No family is at the bedside this morning. The case was also discussed with Dr. Aguillon. The fractures are subacute and healing is noted. No surgical intervention is warranted at this time. Physical and occupational therapy has been ordered. She may weight-bear as tolerated to the right lower extremity. Pain control with either Ultram or Tylenol. The patient may need skilled rehab upon discharge depending on ambulatory status. These fractures may take up to 3 months to heal. She is orthopedically stable at this time. We will sign off and she may follow up in our office as needed.
[2018-12-14] MEDS: CINACALCET 30 MG TAB PO SCH (11:11)
[2018-12-14] MEDS: hydrALAZINE HCL 20 MG/ML 1 ML VIAL IVP PRN ×2 (16:23→21:51)
[2018-12-14] MEDS: ACETAMINOPHEN TAB 325 MG TAB PO PRN (17:32)
[2018-12-14] MEDS: ONDANSETRON 4 MG/2 ML VIAL IVP PRN (18:12)
[2018-12-14] MEDS: traMADol 50 MG TAB PO PRN (20:59)
[2018-12-15] MEDS: SODIUM CHLORIDE 0.9% 1,000 ML IV SCH ×3 (02:02→17:03)
[2018-12-15 06:11] LABS: HCT 24.8 % (34.0-46.0); HGB 8.4 gm/dL (11.4-16.0); MCH 35.2 pg (25.0-35.0); MCHC 33.8 g/dL (31.0-37.0); MCV 103.8 fL (80.0-100.0); Macrocytosis Slight; Mean Platelet Volume 6.8; Platelet Count 178 k/uL (150-450); RBC 2.39 m/uL (3.80-5.40); RDW 14.3 % (11.5-15.5); WBC 5.7 k/uL (3.8-10.6)
--- NOTE | 2018-12-15 06:28 | P.CONS ---
History of Present Illness - Chief Complaint Walking difficulty - History of Present Illness I had the opportunity to see patient for inpatient rehab consultation with regard to walking difficulty. She was admitted to [facility] December 13 with history of fall and generalized weakness. History of recent poor appetite. X- rays revealed superior pubic rami fracture as well as lumbar degenerative disc disease. Seen by Dr. Schwartz for acute kidney injury related to hypercalcemia. PT reports moderate assistance for transfer. OT prescribed. Previous functional history as elicited from patient: 88-year-old right-handed white female who is lives in a first-floor of 2 floor home with son. Son lives in basement. Son does the cooking. 1 of 2 daughters comes to assist with driving. Patient describes independent with own laundry, sitdown shower, gait with roller walker. Denies tobacco or alcohol. Dr. Robison is regular doctor. Family history of mother with stroke. Review of Systems Review of systems: ENT: Denies sneezes or discharge. Eyes: Denies discharge or photophobia. Cardiac: Denies chest pain or palpitation. Pulmonary: Denies cough or shortness of breath. Breast: Denies discharge or lumps. Gastrointestinal: Denies nausea, emesis, constipation, diarrhea. Genitourinary: Denies discharge or frequency. Musculoskeletal: Denies muscle or bone aches. Neurologic: Generalized weakness and long-standing poor memory. Endocrine: Denies shakes or sweats. Oncology: Denies cancers. Dermatologic: Denies rash, itching, pruritus. ALLERGY/immunology: Denies sneezes, rashes. 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 History of Any Multi-Drug Resistant Organisms: None Reported Past Surgical History: Cholecystectomy, Tonsillectomy Past Anesthesia/Blood Transfusion Reactions: Motion Sickness Additional Past Anesthesia/Blood Transfusion Reaction / Comm: pt stated "hard time coming back out of anesthesia" Past Psychological History: No Psychological Hx Reported Smoking Status: Never smoker Past Alcohol Use History: None Reported Past Drug Use History: None Reported - Past Family History Mother Family Medical History: CVA/TIA Father Family Medical History: Cancer, Prostate Disorder Medications and Allergies Home Medications Medication Instructions Recorded Confirmed Type Aspirin 81 mg PO DAILY 06/01/14 12/12/18 History Donepezil [Aricept] 10 mg PO DAILY 11/06/18 12/12/18 History Ibuprofen [Motrin Ib] 200 mg PO Q4H PRN 11/06/18 12/12/18 History Isosorbide Mononitrate ER [Imdur] 60 mg PO DAILY 11/06/18 12/12/18 History Levothyroxine Sodium [Synthroid] 75 mcg PO MOTUWETHFRSA 11/06/18 12/12/18 History Meloxicam 7.5 mg PO DAILY 11/06/18 12/12/18 History traMADol HCL [Ultram] 50 mg PO BID PRN 11/06/18 12/12/18 History Allergies Allergy/AdvReac Type Severity Reaction Status Date / Time prednisone Allergy Swelling Verified 12/12/18 23:46 ropinirole HCl [From Requip] AdvReac Nausea & Verified 12/12/18 23:46 Vomiting Sulfa (Sulfonamide AdvReac Unknown Verified 12/12/18 23:46 Antibiotics) Physical Exam Vitals: Vital Signs Temp Pulse Resp BP Pulse Ox 12/15/18 04:00 97.2 F L 101 H 18 156/64 94 L 12/15/18 00:00 97.8 F 100 17 149/69 93 L 12/14/18 20:00 98.2 F 89 18 182/78 94 L 12/14/18 17:22 88 160/68 12/14/18 16:00 80 17 12/14/18 15:46 97.1 F L 80 17 190/87 96 12/14/18 11:20 80 18 12/14/18 11:18 98.2 F 80 18 169/84 96 12/14/18 08:31 171/74 12/14/18 07:56 67 18 12/14/18 07:55 98.0 F 67 18 197/71 96 Intake and Output 12/14/18 12/14/18 12/15/18 14:59 22:59 06:59 Intake Total 1860 210 Output Total 200 Balance 1660 210 Intake: IV 720 10 Invasive Line 1 20 Invasive Line 2 10 Sodium Chloride 0.9% 1, 700 000 ml @ 100 mls/hr IV . Q10H [facility] Rx#:[id number] Oral 1140 200 Output: Urine 200 Other: Voiding Method Bedside Commode Bedside Commode Bedside Commode # Voids 1 1 # Bowel Movements 1 Weight 59 kg Skin: Atrophic, intact. General: Medium build and comfortable appearance. Head: Normocephalic, atraumatic. Eyes: Symmetric. Pupils equal round. Ears: Symmetric. Hearing within normal limits. Mouth: Clear. Neck: Supple. Carotid without bruit. Cardiac: Regular rate and rhythm. Lungs: Clear anteriorly and posteriorly. Abdomen: Soft active nontender. Extremities: Normal tone. Neurological: Mental status: Alert, cooperative, pleasant. Cranial nerves: Symmetric facial tone and trapezius. Motor: Can elevate all 4 limbs. Sensation: Intact throughout. DTRs: Symmetric and equal throughout. Mobility: Sits with assistance. Results CBC & Chem 7: 12/15/18 05:54 12/14/18 05:29 Labs: Abnormal Lab Results - Last 24 Hours (Table) 12/14/18 12/14/18 12/15/18 Range/Units 05:29 05:29 05:54 RBC 2.49 L 2.39 L (3.80-5.40) m/uL Hgb 8.6 L 8.4 L (11.4-16.0) gm/dL Hct 26.3 L 24.8 L (34.0-46.0) % MCV 105.3 H 103.8 H (80.0-100.0) fL MCH 35.2 H (25.0-35.0) pg Chloride 108 H (98-107) mmol/L BUN 32 H (7-17) mg/dL Creatinine 1.93 H (0.52-1.04) mg/dL Calcium 14.7 H* (8.4-10.2) mg/dL Microbiology - Last 24 Hours (Table) 12/13/18 00:25 Urine Culture - Preliminary Urine,Voided Gram Neg Bacilli Assessment and Plan (1) Acute kidney injury Current Visit: Yes Status: Acute Code(s): N17.9 - ACUTE KIDNEY FAILURE, UNSPECIFIED SNOMED Code(s): 92986069 (2) Fracture of superior pubic ramus Current Visit: Yes Status: Acute Code(s): S32.519A - FRACTURE OF SUPERIOR RIM OF UNSP PUBIS, INIT FOR CLOS FX SNOMED Code(s): 338315840 Plan: Impression: 1. Walking difficulty history of recent fall. 2. Right pubic rami fracture. 3. Acute kidney injury related to hypercalcemia. 4. Memory impairment. 5. S2 arthritis. 6. History of cancer. Comments and plan: At this time PT and OT prescribed. We'll add speech therapy for communication and cognition. We'll follow therapies with yourself. Inpatient rehab coordinator must discuss case with son and daughters with regard to their discharge plan.
[2018-12-15 06:30] LABS: Potassium 3.6 mmol/L (3.5-5.1)
[2018-12-15 06:39] LABS: Calcium 15.1 mg/dL (8.4-10.2)
[2018-12-15] MEDS: LEVOTHYROXINE 75 MCG TAB PO SCH (06:40)
[2018-12-15] MEDS: DONEPEZIL 10 MG TAB PO SCH (09:19)
[2018-12-15] MEDS: ISOSORBIDE MONONITRATE ER 60 MG TAB.ER.24H PO SCH (09:19)
[2018-12-15] MEDS: ASPIRIN 81 MG PO SCH (09:19)
[2018-12-15] MEDS: CINACALCET 30 MG TAB PO SCH (09:19)
--- NOTE | 2018-12-15 10:14 | P.PN ---
Subjective Patient is seen in follow-up for acute kidney injury. Renal function is worse today with creatinine up to 2.1. Calcium level is also elevated at 15.1. Patient denies any chest pain or shortness of breath. She admits to good urine output. Oral intake is fair. She had 1 episode of emesis yesterday. Vital signs are stable. General: The patient appeared well nourished and normally developed. HEENT: Head exam is unremarkable. Neck is without jugular venous distension. LUNGS: Lungs are clear to auscultation and percussion. Breath sounds decreased. HEART: Rate and Rhythm are regular. First and second heart sounds normal. No murmurs, rubs or gallops. ABDOMEN: Abdominal exam reveals normal bowel sounds. Non-tender and non- distended. No evidence of peritonitis. EXTREMITITES: No clubbing, cyanosis, or edema. Objective - Vital Signs Vital signs: Vital Signs Temp 97.5 F L 12/15/18 08:00 Pulse 87 12/15/18 08:00 Resp 17 12/15/18 08:00 BP 166/76 12/15/18 08:00 Pulse Ox 94 L 12/15/18 08:00 Intake & Output 12/14/18 12/15/18 12/15/18 18:59 06:59 18:59 Intake Total 2070 200 Output Total 200 Balance 1870 200 Weight 59 kg Intake: IV 730 Invasive Line 1 20 Invasive Line 2 10 Sodium Chloride 0.9% 1, 700 000 ml @ 100 mls/hr IV . Q10H [facility] Rx#:[id number] Oral 1340 200 Output: Urine 200 Other: Voiding Method Bedside Commode Bedside Commode Diaper # Voids 1 # Bowel Movements 1 - Labs CBC & Chem 7: 12/15/18 05:54 12/15/18 05:54 Labs: Abnormal Lab Results - Last 24 Hours (Table) 12/15/18 12/15/18 Range/Units 05:54 05:54 RBC 2.39 L (3.80-5.40) m/uL Hgb 8.4 L (11.4-16.0) gm/dL Hct 24.8 L (34.0-46.0) % MCV 103.8 H (80.0-100.0) fL MCH 35.2 H (25.0-35.0) pg Chloride 108 H (98-107) mmol/L BUN 30 H (7-17) mg/dL Creatinine 2.21 H (0.52-1.04) mg/dL Glucose 105 H (74-99) mg/dL Calcium 15.1 H* (8.4-10.2) mg/dL Microbiology - Last 24 Hours (Table) 12/13/18 00:25 Urine Culture - Preliminary Urine,Voided Gram Neg Bacilli Assessment and Plan Plan: Assessment: 1. Acute kidney injury secondary to ATN secondary to hypercalcemia. Creatinine up to 2.1 today. 2. Hypercalcemia which is most likely secondary to primary hyperparathyroidism. Calcium level 15.1 today. 3. UTI. Urine culture positive for gram-negative bacilli. Maintain on IV antibiotics. 4. Benign hypertension. 5. Anemia. Rule out iron deficiency. Plan: Increase dose of Sensipar to 90 mg daily. Check vitamin D, 125 vitamin D3, KAREEN, and PTH related peptide. Check serum and urine immunofixation. Check parathyroid nuclear scan. Add calcitonin. Repeat PTH level. Repeat electrolytes in the morning. Check iron studies.
[2018-12-15] MEDS: ONDANSETRON 4 MG/2 ML VIAL IVP PRN (15:03)
[2018-12-15] MEDS: CALCITONIN INJ 200 UNIT/ML (MDV) VIAL IM SCH ×2 (15:03→21:48)
[2018-12-15] MEDS: ACETAMINOPHEN TAB 325 MG TAB PO PRN (15:04)
[2018-12-15] MEDS: DOCUSATE 100 MG CAP PO PRN (15:04)
[2018-12-15 17:57] LABS: Glucose,Whole Blood 113 mg/dL (75-99)
[2018-12-15] MEDS: hydrALAZINE HCL 20 MG/ML 1 ML VIAL IVP PRN (18:11)
[2018-12-15] MEDS ORDERED: METOCLOPRAMIDE 5 MG/ML 2 ML VIAL IVP PRN (19:20)
[2018-12-15] MEDS: PANTOPRAZOLE 40 MG/10 ML VIAL IVP SCH (20:08)
--- NOTE | 2018-12-15 20:23 | XR ---
Abdomen 2 views. History nausea and vomiting. Comparison none. FINDINGS: Two-view supine were obtained. There is no sign of intestinal obstruction or pneumoperitoneum. Fecal pattern is normal. Lung bases are clear. There are clips from cholecystectomy. There is some arthriti c change in the hip joints. There is vacuum disc at L4-5. I see no acute fracture. There is old fract ures right superior and inferior pubic rami. IMPRESSION: Nonacute abdomen. Old right pubic rami fractures.
--- NOTE | 2018-12-15 22:34 | NM ---
EXAMINATION TYPE: NM parathyroid w/spect DATE OF EXAM: 12/15/2018 COMPARISON: Prior nuclear medicine parathyroid scan June 22, 2015 HISTORY: Hypercalcemia. TECHNIQUE: Following administration of 25.5 mCi Tc99m Sestamibi. Anterior projection images of the neck and ches t were obtained 10 minutes and 3 hours post injection. SPECT images of the neck and chest were obtai mallika and reconstructed in three axes. FINDINGS: Thyroid tracer washout: Delayed images demonstrate suboptimal tracer washout from the thyroid without suspicious focal persistent uptake. Findings similar to prior study. Parathyroid uptake: The 3 hour delayed images do not demonstrate any focal abnormal persistent uptake in the region of the parathyroid glands to suggest parathyroid adenoma. Normal uptake: There is physiological tracer uptake in the visualized portion of myocardium and saliv delon glands. IMPRESSION: Suboptimal study without focal parathyroid adenoma clearly seen. No significant change fr om prior study.
--- NOTE | 2018-12-16 01:43 | P.PN ---
Subjective Progress Note Date: 12/15/18 Principal diagnosis: Acute renal failure Hypercalcemia Pelvic fracture UTI 88 yo female who is brought to the ED today by her daughter for evaluation of generalized weakness. Patient reports that recently she has had no appetite she has not been eating or drinking well she reports that she has occasional bouts of nausea and no desire to eat or drink. She states that yesterday she was walking with her walker when she began to feel very weak, she reports her legs felt like they got all zigzag and then she fell into a sitting position. She states that today she is having some pain in her tailbone. Patient also states she is concerned because she just gotten so weak. Her grandson who is a nurse came over to see her today and stated that he was concerned she was dehydrated and needed to come to the hospital. She reports that she has multiple medical problems and takes no medications. 12/15/2018 Patient is seen for follow-up at bedside; patient has no specific complaints at this time Vital signs are stable with a temperature of 97.5 and blood pressure of 166/76 Patient's lab work today shows worsening of renal function with creatinine escalating from 1.9-2.2; calcium level is increased to 15.1 compared to 14.7 yesterday; intact parathormone is within normal limits at 29.6; dose of Sensipar has been increased to 90 mg daily and calcitonin is admitted; we will check vitamin D, 125 vitamin D3, PTH related peptide and parathyroid nuclear scan; repeat parathyroid level has been recommended by nephrology Objective - Vital Signs Vital signs: Vital Signs Temp 97.5 F L 12/15/18 08:00 Pulse 87 12/15/18 08:00 Resp 17 12/15/18 08:00 BP 166/76 12/15/18 08:00 Pulse Ox 94 L 12/15/18 08:00 Intake & Output 12/14/18 12/15/18 12/15/18 18:59 06:59 18:59 Intake Total 2070 200 Output Total 200 Balance 1870 200 Weight 59 kg Intake: IV 730 Invasive Line 1 20 Invasive Line 2 10 Sodium Chloride 0.9% 1, 700 000 ml @ 100 mls/hr IV . Q10H [facility] Rx#:[id number] Oral 1340 200 Output: Urine 200 Other: Voiding Method Bedside Commode Bedside Commode Diaper # Voids 1 # Bowel Movements 1 - Exam GENERAL: The patient is alert and oriented x3, not in any acute distress. Well developed, well nourished. HEENT: Pupils are round and equally reacting to light. EOMI. No scleral icterus. No conjunctival pallor. Normocephalic, atraumatic. No pharyngeal erythema. No thyromegaly. CARDIOVASCULAR: S1 and S2 present. No murmurs, rubs, or gallops. PULMONARY: Chest is clear to auscultation, no wheezing or crackles. ABDOMEN: Soft, nontender, nondistended, normoactive bowel sounds. No palpable organomegaly. MUSCULOSKELETAL: No joint swelling or deformity. EXTREMITIES: No cyanosis, clubbing, or pedal edema. NEUROLOGICAL: Gross neurological examination did not reveal any focal deficits. SKIN: No rashes. - Labs CBC & Chem 7: 12/15/18 05:54 12/15/18 05:54 Labs: Abnormal Lab Results - Last 24 Hours (Table) 12/15/18 12/15/18 Range/Units 05:54 05:54 RBC 2.39 L (3.80-5.40) m/uL Hgb 8.4 L (11.4-16.0) gm/dL Hct 24.8 L (34.0-46.0) % MCV 103.8 H (80.0-100.0) fL MCH 35.2 H (25.0-35.0) pg Chloride 108 H (98-107) mmol/L BUN 30 H (7-17) mg/dL Creatinine 2.21 H (0.52-1.04) mg/dL Glucose 105 H (74-99) mg/dL Calcium 15.1 H* (8.4-10.2) mg/dL Microbiology - Last 24 Hours (Table) 12/13/18 00:25 Urine Culture - Final Urine,Voided Escherichia coli Assessment and Plan Assessment: 1. Acute renal failure/dehydration - Start patient on IV fluid hydration with normal saline at 100 mL an hour - Monitor strict TINO's, daily weights, renal function and electrolytes; avoid hypotension and nephrotoxins - Consult nephrology 2. Marked hypercalcemia - Possibly secondary to dehydration; continue with IV fluids - We will order intact parathormone levels 3. Fall/fracture superior pubic ramus - Orthopedic recommendations are noted and appreciated - Possibly subacute fracture which is healing well - Consult PT/OT for weightbearing as tolerated to right lower extremity - Pain controlled with Tylenol/Ultram 4. UTI; - Patient remains on IV Rocephin 1 g daily - Urine and blood cultures are done and pending 5. Hypothyroidism; continue with home dose of levothyroxine 6. DVT prophylaxis; SCDs CODE STATUS; DO NOT RESUSCITATE
[2018-12-16] MEDS: SODIUM CHLORIDE 0.9% 1,000 ML IV SCH ×3 (02:17→21:29)
[2018-12-16] MEDS: ACETAMINOPHEN TAB 325 MG TAB PO PRN (03:12)
[2018-12-16] MEDS: LEVOTHYROXINE 75 MCG TAB PO SCH (05:47)
[2018-12-16 07:36] LABS: Magnesium 1.5 mg/dL (1.6-2.3); Potassium 3.5 mmol/L (3.5-5.1)
[2018-12-16 07:55] LABS: Calcium 13.7 mg/dL (8.4-10.2)
[2018-12-16] MEDS: CALCITONIN INJ 200 UNIT/ML (MDV) VIAL IM SCH (09:06)
[2018-12-16] MEDS: CINACALCET 30 MG TAB PO SCH (09:07)
[2018-12-16] MEDS: ISOSORBIDE MONONITRATE ER 60 MG TAB.ER.24H PO SCH (09:07)
[2018-12-16] MEDS: PANTOPRAZOLE 40 MG/10 ML VIAL IVP SCH ×2 (09:07→21:21)
[2018-12-16] MEDS: DONEPEZIL 10 MG TAB PO SCH (09:08)
[2018-12-16] MEDS: ASPIRIN 81 MG PO SCH (09:11)
[2018-12-16] MEDS: CARVEDILOL 3.125 MG TAB PO SCH ×2 (11:32→21:22)
[2018-12-16 11:59] LABS: Protein, Total 6.6 g/dL (6.2-8.2)
[2018-12-16 12:00] LABS: Iron Saturation 24.79 (12.00-45.00)
[2018-12-16 12:09] LABS: Vitamin D 25 Hydroxy 41.8 ng/mL (30.0-100.0)
[2018-12-16] MEDS: MAGNESIUM SULFATE-D5W PMX 1 GM in DEXTROSE/WATER 1 100ML.BAG IVPB SCH ×2 (12:12→13:26)
--- NOTE | 2018-12-16 12:57 | P.PN ---
Subjective Patient is seen in follow-up for acute kidney injury. Renal function is worse today with creatinine up to 2.3. Calcium level is a little improved at 13.1. Patient denies any chest pain or shortness of breath. She admits to good urine output. Oral intake is fair. Vital signs are stable. General: The patient appeared well nourished and normally developed. HEENT: Head exam is unremarkable. Neck is without jugular venous distension. LUNGS: Lungs are clear to auscultation and percussion. Breath sounds decreased. HEART: Rate and Rhythm are regular. First and second heart sounds normal. No murmurs, rubs or gallops. ABDOMEN: Abdominal exam reveals normal bowel sounds. Non-tender and non- distended. No evidence of peritonitis. EXTREMITITES: No clubbing, cyanosis, or edema. Objective - Vital Signs Vital signs: Vital Signs Temp 98.6 F 12/16/18 08:00 Pulse 92 12/16/18 08:00 Resp 18 12/16/18 08:00 BP 185/80 12/16/18 08:00 Pulse Ox 92 L 12/16/18 08:00 Intake & Output 12/15/18 12/16/18 12/16/18 18:59 06:59 18:59 Intake Total 500 1130 10 Output Total 600 Balance -100 1130 10 Weight 65.5 kg Intake: IV 70 30 10 Invasive Line 2 20 30 10 cefTRIAXone 1 gm In 50 Sodium Chloride 0.9% 50 ml @ 100 mls/hr IVPB Q24HR [facility] Rx#:[id number] Intake, IV Titration 1100 Amount Sodium Chloride 0.9% 1, 1100 000 ml @ 100 mls/hr IV . Q10H [facility] Rx#:[id number] Oral 430 Output: Urine 600 Other: Voiding Method Diaper Diaper Diaper # Voids 1 1 - Labs CBC & Chem 7: 12/15/18 05:54 12/16/18 06:31 Labs: Abnormal Lab Results - Last 24 Hours (Table) 12/15/18 12/16/18 Range/Units 17:56 06:31 Chloride 110 H (98-107) mmol/L BUN 33 H (7-17) mg/dL Creatinine 2.30 H (0.52-1.04) mg/dL POC Glucose (mg/dL) 113 H (75-99) mg/dL Calcium 13.7 H* (8.4-10.2) mg/dL Magnesium 1.5 L (1.6-2.3) mg/dL Microbiology - Last 24 Hours (Table) 12/13/18 00:25 Urine Culture - Final Urine,Voided Escherichia coli Assessment and Plan Plan: Assessment: 1. Acute kidney injury secondary to ATN secondary to hypercalcemia. Creatinine 2.3 today. Baseline creatinine near 1. 2. Hypercalcemia. Etiology not clear. Nuclear scan of the parathyroid did not reveal clear adenoma. Vitamin D level 41. Repeat PTH is 58 which is definitely high in the setting of hypercalcemia. Rest of the workup pending. 3. UTI. Urine culture positive for E. coli. Maintain on IV antibiotics. 4. Benign hypertension. Blood pressures on the higher side. 5. Anemia. Iron replete. 6. Hypomagnesemia from poor oral intake. Being replaced. Plan: Maintain Sensipar 90 mg daily. Follow-up 1,25 vitamin D3, KAREEN, and PTH related peptide. Follow-up serum and urine immunofixation. Maintain calcitonin. Repeat electrolytes in the morning. Add hydralazine.
--- NOTE | 2018-12-16 13:10 | P.PN ---
Subjective 88 yo female who is brought to the ED today by her daughter for evaluation of generalized weakness. Patient reports that recently she has had no appetite she has not been eating or drinking well she reports that she has occasional bouts of nausea and no desire to eat or drink. She states that yesterday she was walking with her walker when she began to feel very weak, she reports her legs felt like they got all zigzag and then she fell into a sitting position. She states that today she is having some pain in her tailbone. Patient also states she is concerned because she just gotten so weak. Her grandson who is a nurse came over to see her today and stated that he was concerned she was dehydrated and needed to come to the hospital. She reports that she has multiple medical problems and takes no medications. 12/15/2018 Patient is seen for follow-up at bedside; patient has no specific complaints at this time Vital signs are stable with a temperature of 97.5 and blood pressure of 166/76 Patient's lab work today shows worsening of renal function with creatinine escalating from 1.9-2.2; calcium level is increased to 15.1 compared to 14.7 yesterday; intact parathormone is within normal limits at 29.6; dose of Sensipar has been increased to 90 mg daily and calcitonin is admitted; we will check vitamin D, 125 vitamin D3, PTH related peptide and parathyroid nuclear scan; repeat parathyroid level has been recommended by nephrology 12/16/2018 Patient is clinically doing well but that continues to have elevated serum calcium which has come down from about 17 to now around 12. Patient's creatinine is around 2.3 patient acute renal failure is secondary to hypercalcemia. Pending sedum and urine electrophoresis. Concern is malignancy because of highly elevated serum calcium. Patient had a parathyroid scan which did not show any parathyroid adenoma. Constitutional: Denied any fatigue denied any fever. Cardio vascular: denied any chest pain, palpitations Gastrointestinal denied any nausea vomiting Pulmonary: Denied any shortness of breath cough Neurologic denied any new focal deficits All inpatient medications were reviewed and appropriate changes in these medications as dictated in the interval history and assessment and plan. Objective - Vital Signs Vital signs: Vital Signs Temp 98.6 F 12/16/18 08:00 Pulse 92 12/16/18 08:00 Resp 18 12/16/18 08:00 BP 185/80 12/16/18 08:00 Pulse Ox 92 L 12/16/18 08:00 Intake & Output 12/15/18 12/16/18 12/16/18 18:59 06:59 18:59 Intake Total 500 1130 10 Output Total 600 Balance -100 1130 10 Weight 65.5 kg Intake: IV 70 30 10 Invasive Line 2 20 30 10 cefTRIAXone 1 gm In 50 Sodium Chloride 0.9% 50 ml @ 100 mls/hr IVPB Q24HR [facility] Rx#:[id number] Intake, IV Titration 1100 Amount Sodium Chloride 0.9% 1, 1100 000 ml @ 100 mls/hr IV . Q10H [facility] Rx#:[id number] Oral 430 Output: Urine 600 Other: Voiding Method Diaper Diaper Diaper # Voids 1 1 - Exam PHYSICAL EXAMINATION: GENERAL: The patient is alert and oriented x3, not in any acute distress. Well developed, well nourished. HEENT: Pupils are round and equally reacting to light. EOMI. No scleral icterus. No conjunctival pallor. Normocephalic, atraumatic. No pharyngeal erythema. No thyromegaly. CARDIOVASCULAR: S1 and S2 present. No murmurs, rubs, or gallops. PULMONARY: Chest is clear to auscultation, no wheezing or crackles. ABDOMEN: Soft, nontender, nondistended, normoactive bowel sounds. No palpable organomegaly. MUSCULOSKELETAL: No joint swelling or deformity. EXTREMITIES: No cyanosis, clubbing, or pedal edema. NEUROLOGICAL: Gross neurological examination did not reveal any focal deficits. SKIN: No rashes. - Labs CBC & Chem 7: 12/15/18 05:54 12/16/18 06:31 Labs: Abnormal Lab Results - Last 24 Hours (Table) 12/15/18 12/16/18 Range/Units 17:56 06:31 Chloride 110 H (98-107) mmol/L BUN 33 H (7-17) mg/dL Creatinine 2.30 H (0.52-1.04) mg/dL POC Glucose (mg/dL) 113 H (75-99) mg/dL Calcium 13.7 H* (8.4-10.2) mg/dL Magnesium 1.5 L (1.6-2.3) mg/dL Microbiology - Last 24 Hours (Table) 12/13/18 00:25 Urine Culture - Final Urine,Voided Escherichia coli Assessment and Plan Plan: -Acute renal failure: Secondary to hypercalcemia. Continue with calcitonin, IV fluids. -Hypercalcemia concern for malignancy pending serum and protein electrophoresis , pending area 125 vitamin D3 and PTH RP -Pelvic fracture -Possible urinary tract infection patient will be continued on Rocephin for today which can be discontinued as she will be done with 3 days of therapy -Hypothyroidism -Accelerated hypertension: Patient will be started on Coreg because of elevated heart rate, discontinue hydralazine
[2018-12-16] MEDS: ONDANSETRON 4 MG/2 ML VIAL IVP PRN (13:25)
[2018-12-16] MEDS: hydrALAZINE HCL 50 MG TAB PO SCH ×2 (13:26→21:22)
[2018-12-17] MEDS: CALCITONIN INJ 200 UNIT/ML (MDV) VIAL IM SCH ×3 (00:28→22:40)
[2018-12-17] MEDS: ARTIFICIAL TEARS-HYPROMELLOSE DROPS 15 ML BTL BOTH EYES PRN ×2 (00:28→17:49)
[2018-12-17] MEDS: LEVOTHYROXINE 75 MCG TAB PO SCH (06:33)
[2018-12-17] MEDS: CARVEDILOL 3.125 MG TAB PO SCH ×2 (06:33→17:45)
[2018-12-17 06:38] LABS: HCT 22.9 % (34.0-46.0); HGB 7.7 gm/dL (11.4-16.0); MCH 34.9 pg (25.0-35.0); MCHC 33.6 g/dL (31.0-37.0); MCV 103.8 fL (80.0-100.0); Macrocytosis Slight; Mean Platelet Volume 6.8; Platelet Count 189 k/uL (150-450); RBC 2.21 m/uL (3.80-5.40); RDW 14.3 % (11.5-15.5)
[2018-12-17 06:54] LABS: Calcium 12.9 mg/dL (8.4-10.2); Magnesium 1.9 mg/dL (1.6-2.3)
--- NOTE | 2018-12-17 07:29 | XR ---
EXAMINATION TYPE: XR chest 2V DATE OF EXAM: 12/17/2018 COMPARISON: NONE TECHNIQUE: PA and lateral views submitted. HISTORY: Shortness of breath FINDINGS: There is right lower lobe consolidation and small bilateral effusions with increased interstitial pat tern. Diffuse osteopenia and arthropathy of the shoulders. Heart size normal. Hypertrophic change of the spine. Hyperinflation suggests COPD. IMPRESSION: 1. Constellation of findings favor CHF over pneumonia correlate clinically.
[2018-12-17] MEDS: ASPIRIN 81 MG PO SCH (08:24)
[2018-12-17] MEDS: hydrALAZINE HCL 50 MG TAB PO SCH ×3 (08:24→20:31)
[2018-12-17] MEDS: ISOSORBIDE MONONITRATE ER 60 MG TAB.ER.24H PO SCH (08:24)
[2018-12-17] MEDS: PANTOPRAZOLE 40 MG/10 ML VIAL IVP SCH ×2 (08:24→22:42)
[2018-12-17] MEDS: SODIUM CHLORIDE 0.9% 1,000 ML IV SCH ×2 (08:25→17:45)
[2018-12-17] MEDS: CINACALCET 30 MG TAB PO SCH (08:27)
[2018-12-17 09:08] LABS: Angiotensin-1 Converting Enz. 17 U/L (8-52)
--- NOTE | 2018-12-17 12:15 | P.PN ---
Subjective 88 yo female who is brought to the ED today by her daughter for evaluation of generalized weakness. Patient reports that recently she has had no appetite she has not been eating or drinking well she reports that she has occasional bouts of nausea and no desire to eat or drink. She states that yesterday she was walking with her walker when she began to feel very weak, she reports her legs felt like they got all zigzag and then she fell into a sitting position. She states that today she is having some pain in her tailbone. Patient also states she is concerned because she just gotten so weak. Her grandson who is a nurse came over to see her today and stated that he was concerned she was dehydrated and needed to come to the hospital. She reports that she has multiple medical problems and takes no medications. 12/15/2018 Patient is seen for follow-up at bedside; patient has no specific complaints at this time Vital signs are stable with a temperature of 97.5 and blood pressure of 166/76 Patient's lab work today shows worsening of renal function with creatinine escalating from 1.9-2.2; calcium level is increased to 15.1 compared to 14.7 yesterday; intact parathormone is within normal limits at 29.6; dose of Sensipar has been increased to 90 mg daily and calcitonin is admitted; we will check vitamin D, 125 vitamin D3, PTH related peptide and parathyroid nuclear scan; repeat parathyroid level has been recommended by nephrology 12/16/2018 Patient is clinically doing well but that continues to have elevated serum calcium which has come down from about 17 to now around 12. Patient's creatinine is around 2.3 patient acute renal failure is secondary to hypercalcemia. Pending sedum and urine electrophoresis. Concern is malignancy because of highly elevated serum calcium. Patient had a parathyroid scan which did not show any parathyroid adenoma. 12/17/2018 No cigarette in overnight events serum culture continue to improve. Had lengthy discussion with nephrology as well as her grandson. Serum protein electrophoresis is pending. No aggressive measures but will order CAT scan of the whole body as a part of skeletal survey for multiple myeloma. Plan is to treat her serum calcium and if her overall condition worsens down the line patient will be palliative care or hospice at that time. Constitutional: Denied any fatigue denied any fever. Cardio vascular: denied any chest pain, palpitations Gastrointestinal denied any nausea vomiting Pulmonary: Denied any shortness of breath cough Neurologic denied any new focal deficits All inpatient medications were reviewed and appropriate changes in these medications as dictated in the interval history and assessment and plan. Objective - Vital Signs Vital signs: Vital Signs Temp 96.3 F L 12/17/18 08:00 Pulse 93 12/17/18 08:00 Resp 18 12/17/18 06:30 BP 168/73 12/17/18 08:00 Pulse Ox 96 12/17/18 08:00 Intake & Output 12/16/18 12/17/18 12/17/18 18:59 06:59 18:59 Intake Total 0 240 Output Total 100 Balance -100 240 Weight 62.9 kg Intake: Oral 0 240 Output: Urine 100 Other: Voiding Method Diaper Diaper # Voids 1 2 2 # Bowel Movements 0 0 - Exam PHYSICAL EXAMINATION: GENERAL: The patient is alert and oriented x3, not in any acute distress. Well developed, well nourished. HEENT: Pupils are round and equally reacting to light. EOMI. No scleral icterus. No conjunctival pallor. Normocephalic, atraumatic. No pharyngeal erythema. No thyromegaly. CARDIOVASCULAR: S1 and S2 present. No murmurs, rubs, or gallops. PULMONARY: Chest is clear to auscultation, no wheezing or crackles. ABDOMEN: Soft, nontender, nondistended, normoactive bowel sounds. No palpable organomegaly. MUSCULOSKELETAL: No joint swelling or deformity. EXTREMITIES: No cyanosis, clubbing, or pedal edema. NEUROLOGICAL: Gross neurological examination did not reveal any focal deficits. SKIN: No rashes. - Labs CBC & Chem 7: 12/17/18 06:16 12/17/18 06:16 Labs: Abnormal Lab Results - Last 24 Hours (Table) 12/17/18 12/17/18 Range/Units 06:16 06:16 RBC 2.21 L (3.80-5.40) m/uL Hgb 7.7 L (11.4-16.0) gm/dL Hct 22.9 L (34.0-46.0) % MCV 103.8 H (80.0-100.0) fL Potassium 3.0 L (3.5-5.1) mmol/L Chloride 110 H (98-107) mmol/L BUN 38 H (7-17) mg/dL Creatinine 2.28 H (0.52-1.04) mg/dL Glucose 104 H (74-99) mg/dL Calcium 12.9 H (8.4-10.2) mg/dL Assessment and Plan Plan: -Acute renal failure: Secondary to hypercalcemia. Continue with calcitonin, IV fluids. Malignancy during multiple myeloma is most probably etiology -Hypercalcemia concern for malignancy pending serum and protein electrophoresis , pending area 125 vitamin D3 and PTH RP -Pelvic fracture -Possible urinary tract infection patient will be continued on Rocephin for today which can be discontinued as she will be done with 3 days of therapy -Hypothyroidism -Accelerated hypertension: Patient will be started on Coreg because of elevated heart rate, discontinue hydralazine
[2018-12-17] MEDS ORDERED: FUROSEMIDE 10 MG/ML 4 ML VIAL IV STA (12:26)
--- NOTE | 2018-12-17 12:27 | P.PN ---
Subjective Patient is seen in follow-up for acute kidney injury. Renal function is stable. Calcium level is trending down - 12.9 today. Patient denies any chest pain or shortness of breath. She admits to good urine output. Oral intake is fair. Vital signs are stable. General: The patient appeared well nourished and normally developed. HEENT: Head exam is unremarkable. Neck is without jugular venous distension. LUNGS: Lungs are clear to auscultation and percussion. Breath sounds decreased. HEART: Rate and Rhythm are regular. First and second heart sounds normal. No murmurs, rubs or gallops. ABDOMEN: Abdominal exam reveals normal bowel sounds. Non-tender and non- distended. No evidence of peritonitis. EXTREMITITES: No clubbing, cyanosis, or edema. Objective - Vital Signs Vital signs: Vital Signs Temp 96.3 F L 12/17/18 08:00 Pulse 93 12/17/18 08:00 Resp 18 12/17/18 06:30 BP 168/73 12/17/18 08:00 Pulse Ox 96 12/17/18 08:00 Intake & Output 12/16/18 12/17/18 12/17/18 18:59 06:59 18:59 Intake Total 0 240 Output Total 100 Balance -100 240 Weight 62.9 kg Intake: Oral 0 240 Output: Urine 100 Other: Voiding Method Diaper Diaper # Voids 1 2 2 # Bowel Movements 0 0 - Labs CBC & Chem 7: 12/17/18 06:16 12/17/18 06:16 Labs: Abnormal Lab Results - Last 24 Hours (Table) 12/17/18 12/17/18 Range/Units 06:16 06:16 RBC 2.21 L (3.80-5.40) m/uL Hgb 7.7 L (11.4-16.0) gm/dL Hct 22.9 L (34.0-46.0) % MCV 103.8 H (80.0-100.0) fL Potassium 3.0 L (3.5-5.1) mmol/L Chloride 110 H (98-107) mmol/L BUN 38 H (7-17) mg/dL Creatinine 2.28 H (0.52-1.04) mg/dL Glucose 104 H (74-99) mg/dL Calcium 12.9 H (8.4-10.2) mg/dL Assessment and Plan Plan: Assessment: 1. Acute kidney injury secondary to ATN secondary to hypercalcemia. Renal function stable - creatinine 2.2 today. Baseline creatinine near 1. 2. Hypercalcemia. Etiology not clear. Nuclear scan of the parathyroid did not reveal clear adenoma. Vitamin D level 41. Repeat PTH is 58 which is definitely high in the setting of hypercalcemia. KAREEN level now low. Vit D 41.8. Rest of the workup pending. Concern for malignancy. 3. UTI. Urine culture positive for E. coli. Maintain on IV antibiotics. 4. Benign hypertension. Blood pressures still on the higher side. 5. Anemia. Iron replete. 6. Hypomagnesemia from poor oral intake. Better post replacement. 7. Volume overload secondary to IV fluids. Plan: Maintain Sensipar 90 mg daily. Follow-up 1,25 vitamin D3 and PTH related peptide. Follow-up serum and urine immunofixation. Maintain calcitonin. Repeat electrolytes in the morning. Increase dose of hydralazine. Hep-Lock IV fluids. Lasix 40 mg IV once today.
--- NOTE | 2018-12-17 15:47 | XR ---
EXAMINATION TYPE: XR bone survey complete DATE OF EXAM: 12/17/2018 COMPARISON: NONE HISTORY: Multiple myeloma Bony calvarium : 2 views of the bony calvarium demonstrate. Numerous lytic lesions throughout the ca lvarium. Spine: Two views of the cervical, thoracic and lumbar spines are submitted. There is multilevel face t arthropathy and degenerative disc disease. Grade 1 anterolisthesis of C3 on 4 and C4 on C5. Degener ative changes involving the cervical, thoracic and lumbar spine are noted. Mottled pattern to the pelvic bones and hips are noted. Mottled pattern to the scapula also noted meaghan aterally. PELVIS: Single view of the pelvis demonstrates. Numerous lytic lesions identified UPPER EXTREMITIES: Two views of the upper extremities. Numerous lytic lesions throughout the humeri c lavicle and upper extremities. LOWER EXTREMITIES: 2 views of the lower extremities. Numerous lytic lesions are identified throughou t the lower extremity bilaterally. Severe arthropathy of the hips. Vascular calcifications are seen and there is bilateral consolidation small effusion. Surgical clips in the gallbladder fossa. Severe degenerative disc disease L4-L5. The diffuse osteopenia may mask les ions within the vertebral column. Suspicion for small lytic lesions involving the sacrum. Suspect a t iny lucent lesions involving the rib cage is well. IMPRESSION: Diffuse widespread lytic lesions compatible with multiple myeloma or metastases.
[2018-12-17 17:33] LABS: Vitamin D, 1, 25-Dihydroxy 11 pg/mL (20 - 79)
[2018-12-17] MEDS: DOCUSATE 100 MG CAP PO PRN (17:45)
[2018-12-18] MEDS: CARVEDILOL 3.125 MG TAB PO SCH (06:57)
[2018-12-18] MEDS: LEVOTHYROXINE 75 MCG TAB PO SCH (06:57)
[2018-12-18 08:03] LABS: Magnesium 1.6 mg/dL (1.6-2.3)
[2018-12-18 08:17] LABS: Potassium 2.6 mmol/L (3.5-5.1)
[2018-12-18 08:18] LABS: Calcium 13.3 mg/dL (8.4-10.2)
[2018-12-18] MEDS ORDERED: Potassium Replacement Protocol 1 EACH MISC MISCELLANE PRN (08:54)
[2018-12-18] MEDS ORDERED: Magnesium Replacement Protocol 1 EACH MISC MISCELLANE PRN (08:56)
[2018-12-18 09:36] LABS: Albumin 2.42 g/dL (3.80-4.90); Gamma Globulin 2.79 g/dL (0.70-1.50)
[2018-12-18] MEDS: POTASSIUM CHLORIDE 10 MEQ in WATER FOR INJECTION 1 100ML.BAG IVPB SCH ×6 (09:58→18:52)
[2018-12-18] MEDS: MAGNESIUM SULFATE-D5W PMX 1 GM in DEXTROSE/WATER 1 100ML.BAG IVPB SCH ×2 (09:59→11:22)
[2018-12-18] MEDS: CINACALCET 30 MG TAB PO SCH (10:20)
[2018-12-18] MEDS: DOCUSATE 100 MG CAP PO PRN (10:20)
[2018-12-18] MEDS: ASPIRIN 81 MG PO SCH (10:20)
[2018-12-18] MEDS: traMADol 50 MG TAB PO PRN (10:21)
[2018-12-18] MEDS: ISOSORBIDE MONONITRATE ER 60 MG TAB.ER.24H PO SCH (10:21)
[2018-12-18] MEDS: hydrALAZINE HCL 50 MG TAB PO SCH ×2 (10:23→18:16)
[2018-12-18] MEDS: PANTOPRAZOLE 40 MG/10 ML VIAL IVP SCH ×2 (10:28→22:30)
[2018-12-18] MEDS: CALCITONIN INJ 200 UNIT/ML (MDV) VIAL IM SCH ×2 (10:29→22:30)
--- NOTE | 2018-12-18 11:11 | P.PN ---
Subjective 88 yo female who is brought to the ED today by her daughter for evaluation of generalized weakness. Patient reports that recently she has had no appetite she has not been eating or drinking well she reports that she has occasional bouts of nausea and no desire to eat or drink. She states that yesterday she was walking with her walker when she began to feel very weak, she reports her legs felt like they got all zigzag and then she fell into a sitting position. She states that today she is having some pain in her tailbone. Patient also states she is concerned because she just gotten so weak. Her grandson who is a nurse came over to see her today and stated that he was concerned she was dehydrated and needed to come to the hospital. She reports that she has multiple medical problems and takes no medications. 12/15/2018 Patient is seen for follow-up at bedside; patient has no specific complaints at this time Vital signs are stable with a temperature of 97.5 and blood pressure of 166/76 Patient's lab work today shows worsening of renal function with creatinine escalating from 1.9-2.2; calcium level is increased to 15.1 compared to 14.7 yesterday; intact parathormone is within normal limits at 29.6; dose of Sensipar has been increased to 90 mg daily and calcitonin is admitted; we will check vitamin D, 125 vitamin D3, PTH related peptide and parathyroid nuclear scan; repeat parathyroid level has been recommended by nephrology 12/16/2018 Patient is clinically doing well but that continues to have elevated serum calcium which has come down from about 17 to now around 12. Patient's creatinine is around 2.3 patient acute renal failure is secondary to hypercalcemia. Pending sedum and urine electrophoresis. Concern is malignancy because of highly elevated serum calcium. Patient had a parathyroid scan which did not show any parathyroid adenoma. 12/17/2018 No cigarette in overnight events serum culture continue to improve. Had lengthy discussion with nephrology as well as her grandson. Serum protein electrophoresis is pending. No aggressive measures but will order CAT scan of the whole body as a part of skeletal survey for multiple myeloma. Plan is to treat her serum calcium and if her overall condition worsens down the line patient will be palliative care or hospice at that time. 12/18/2018 Her serum calcium and up a bit. Patient is bit lethargic today I did order a skeletal survey yesterday which showed multiple lesions consistent with multiple myeloma. Urine showed [place] on proteins and patient has IgG lambda paraprotein which is also consistent with multiple myeloma. Discussed the patient patient is not willing to pursue further except for hospice hospice will be consulted will discuss with all the family members later today. Constitutional: Denied any fatigue denied any fever. Cardio vascular: denied any chest pain, palpitations Gastrointestinal denied any nausea vomiting Pulmonary: Denied any shortness of breath cough Neurologic denied any new focal deficits All inpatient medications were reviewed and appropriate changes in these medications as dictated in the interval history and assessment and plan. Objective - Vital Signs Vital signs: Vital Signs Temp 98.7 F 12/18/18 04:00 Pulse 90 12/18/18 04:00 Resp 20 12/18/18 04:00 BP 138/62 12/18/18 04:00 Pulse Ox 94 L 12/18/18 04:00 Intake & Output 12/17/18 12/18/18 12/18/18 18:59 06:59 18:59 Intake Total 580 Balance 580 Weight 62 kg Intake: Oral 580 Other: Voiding Method Diaper # Voids 1 # Bowel Movements 0 - Exam PHYSICAL EXAMINATION: GENERAL: The patient is alert and oriented x3, not in any acute distress. Well developed, well nourished. HEENT: Pupils are round and equally reacting to light. EOMI. No scleral icterus. No conjunctival pallor. Normocephalic, atraumatic. No pharyngeal erythema. No thyromegaly. CARDIOVASCULAR: S1 and S2 present. No murmurs, rubs, or gallops. PULMONARY: Chest is clear to auscultation, no wheezing or crackles. ABDOMEN: Soft, nontender, nondistended, normoactive bowel sounds. No palpable organomegaly. MUSCULOSKELETAL: No joint swelling or deformity. EXTREMITIES: No cyanosis, clubbing, or pedal edema. NEUROLOGICAL: Gross neurological examination did not reveal any focal deficits. SKIN: No rashes. - Labs CBC & Chem 7: 12/17/18 06:16 12/18/18 07:00 Labs: Abnormal Lab Results - Last 24 Hours (Table) 12/16/18 12/16/18 12/18/18 Range/Units 06:31 06:31 07:00 Potassium 2.6 L* (3.5-5.1) mmol/L Carbon Dioxide 33 H (22-30) mmol/L BUN 51 H (7-17) mg/dL Creatinine 2.47 H (0.52-1.04) mg/dL Glucose 101 H (74-99) mg/dL Calcium 13.3 H* (8.4-10.2) mg/dL Albumin (PEP) 2.42 L (3.80-4.90) g/dL Uzrhf-1-Pdrshgvex 0.57 L (0.60-1.00) g/dL Beta Globulins 0.57 L (0.60-1.30) g/dL Gamma Globulins 2.79 H (0.70-1.50) g/dL Vit D 1,25-Dihydroxy 11 L (20 - 79) pg/mL Assessment and Plan Plan: -Acute renal failure: Secondary to hypercalcemia. Patient does appear to have multiple myeloma discussed with the patient as mentioned above -Hypokalemia: Secondary to IV fluids and potassium will be replaced -Hypercalcemia secondary to possibly multiple myeloma. Discussed with the patient will consulted palliative care hospice discussed the family later today. -Pelvic fracture -Possible urinary tract infection patient will be continued on Rocephin for today which can be discontinued as she will be done with 3 days of therapy -Hypothyroidism -Accelerated hypertension: Better control now
[2018-12-18 11:26] VITALS: BMI 25.8
[2018-12-18] MEDS ORDERED: ZOLEDRONIC ACID 4 MG in SODIUM CHLORIDE 0.9% 100 ML IV ONE (12:00)
--- NOTE | 2018-12-18 12:04 | P.PN ---
Subjective Patient is seen in follow-up for acute kidney injury. Renal function is worse with creatinine at 2.47 today. Calcium level is also a little higher at 13.3. Patient denies any chest pain or shortness of breath. She has been waiting. Oral intake is fair. Vital signs are stable. General: The patient appeared well nourished and normally developed. HEENT: Head exam is unremarkable. Neck is without jugular venous distension. LUNGS: Lungs are clear to auscultation and percussion. Breath sounds decreased. HEART: Rate and Rhythm are regular. First and second heart sounds normal. No murmurs, rubs or gallops. ABDOMEN: Abdominal exam reveals normal bowel sounds. Non-tender and non- distended. No evidence of peritonitis. EXTREMITITES: No clubbing, cyanosis, or edema. Objective - Vital Signs Vital signs: Vital Signs Temp 98.7 F 12/18/18 04:00 Pulse 90 12/18/18 04:00 Resp 20 12/18/18 04:00 BP 138/62 12/18/18 04:00 Pulse Ox 94 L 12/18/18 04:00 Intake & Output 12/17/18 12/18/18 12/18/18 18:59 06:59 18:59 Intake Total 580 Balance 580 Weight 62 kg 62 kg Intake: Oral 580 Other: Voiding Method Diaper # Voids 1 # Bowel Movements 0 - Labs CBC & Chem 7: 12/17/18 06:16 12/18/18 07:00 Labs: Abnormal Lab Results - Last 24 Hours (Table) 12/16/18 12/16/18 12/18/18 Range/Units 06:31 06:31 07:00 Potassium 2.6 L* (3.5-5.1) mmol/L Carbon Dioxide 33 H (22-30) mmol/L BUN 51 H (7-17) mg/dL Creatinine 2.47 H (0.52-1.04) mg/dL Glucose 101 H (74-99) mg/dL Calcium 13.3 H* (8.4-10.2) mg/dL Albumin (PEP) 2.42 L (3.80-4.90) g/dL Tvadn-5-Gjcecvscb 0.57 L (0.60-1.00) g/dL Beta Globulins 0.57 L (0.60-1.30) g/dL Gamma Globulins 2.79 H (0.70-1.50) g/dL Vit D 1,25-Dihydroxy 11 L (20 - 79) pg/mL Assessment and Plan Plan: Assessment: 1. Acute kidney injury secondary to ATN secondary to hypercalcemia. Renal function worse with creatinine at 2.47 today. Baseline creatinine near 1. 2. Hypercalcemia. Etiology not clear. Nuclear scan of the parathyroid did not reveal clear adenoma. Vitamin D level 41. Repeat PTH is 58 which is definitely high in the setting of hypercalcemia. KAREEN level now low. Vit D 41.8. 1,25D3 level 11. There is concern for malignancy - immunofixation studies reveal IgG Bence-Sidhu protein. 3. UTI. Urine culture positive for E. coli. Maintain on IV antibiotics. 4. Benign hypertension. Controlled. 5. Anemia. Iron replete. 6. Hypomagnesemia from poor oral intake and diuresis. 7. Volume overload secondary to IV fluids. IV fluids discontinued. Plan: Maintain Sensipar 90 mg daily. Follow-up PTH related peptide. Maintain calcitonin - I will increase dose. Repeat electrolytes in the morning. Maintain current antihypertensives. 4 mg IV zoledronic acid today. Consider oncology recommendation for further myeloma workup. They also has a meeting scheduled with hospice this afternoon.
[2018-12-18 16:22] LABS: Magnesium 2.2 mg/dL (1.6-2.3); Potassium 2.8 mmol/L (3.5-5.1)
[2018-12-19] MEDS: hydrALAZINE HCL 50 MG TAB PO SCH ×3 (03:48→16:04)
[2018-12-19] MEDS: CARVEDILOL 3.125 MG TAB PO SCH ×2 (03:51→06:54)
[2018-12-19] MEDS: POTASSIUM CHLORIDE ER 20 MEQ TAB.ER PO SCH ×2 (05:35→07:00)
[2018-12-19] MEDS: LEVOTHYROXINE 75 MCG TAB PO SCH (06:54)
[2018-12-19 07:41] LABS: Calcium 12.7 mg/dL (8.4-10.2); Magnesium 1.8 mg/dL (1.6-2.3); Potassium 2.9 mmol/L (3.5-5.1)
[2018-12-19] MEDS: CINACALCET 30 MG TAB PO SCH (08:11)
[2018-12-19] MEDS: CALCITONIN INJ 200 UNIT/ML (MDV) VIAL IM SCH (08:11)
[2018-12-19] MEDS: ASPIRIN 81 MG PO SCH (08:11)
[2018-12-19] MEDS: ISOSORBIDE MONONITRATE ER 60 MG TAB.ER.24H PO SCH (08:11)
[2018-12-19] MEDS: PANTOPRAZOLE 40 MG/10 ML VIAL IVP SCH (08:16)
[2018-12-19] MEDS: ONDANSETRON 4 MG/2 ML VIAL IVP PRN (08:16)
--- NOTE | 2018-12-19 08:43 | P.PN ---
Subjective Patient is seen in follow-up for acute kidney injury. Renal function is stable today. Calcium level is slightly better at 12.7. Patient denies any chest pain or shortness of breath. She has been voiding. Oral intake is fair. Vital signs are stable. General: The patient appeared well nourished and normally developed. HEENT: Head exam is unremarkable. Neck is without jugular venous distension. LUNGS: Lungs are clear to auscultation and percussion. Breath sounds decreased. HEART: Rate and Rhythm are regular. First and second heart sounds normal. No murmurs, rubs or gallops. ABDOMEN: Abdominal exam reveals normal bowel sounds. Non-tender and non- distended. No evidence of peritonitis. EXTREMITITES: No clubbing, cyanosis, or edema. Objective - Vital Signs Vital signs: Vital Signs Temp 98.1 F 12/19/18 04:00 Pulse 96 12/19/18 04:00 Resp 20 12/19/18 04:00 BP 168/72 12/19/18 04:00 Pulse Ox 98 12/19/18 04:00 Intake & Output 12/18/18 12/19/18 12/19/18 18:59 06:59 18:59 Intake Total 0 Balance 0 Weight 62 kg 59 kg Intake: Oral 0 Other: Voiding Method Diaper Diaper - Labs CBC & Chem 7: 12/17/18 06:16 12/19/18 07:02 Labs: Abnormal Lab Results - Last 24 Hours (Table) 12/16/18 12/18/18 12/19/18 Range/Units 06:31 15:54 00:16 Potassium 2.8 L 2.9 L (3.5-5.1) mmol/L Carbon Dioxide (22-30) mmol/L BUN (7-17) mg/dL Creatinine (0.52-1.04) mg/dL Calcium (8.4-10.2) mg/dL Albumin (PEP) 2.42 L (3.80-4.90) g/dL Zkbgg-9-Dzwyerpur 0.57 L (0.60-1.00) g/dL Beta Globulins 0.57 L (0.60-1.30) g/dL Gamma Globulins 2.79 H (0.70-1.50) g/dL 12/19/18 Range/Units 07:02 Potassium 2.9 L (3.5-5.1) mmol/L Carbon Dioxide 32 H (22-30) mmol/L BUN 49 H (7-17) mg/dL Creatinine 2.49 H (0.52-1.04) mg/dL Calcium 12.7 H (8.4-10.2) mg/dL Albumin (PEP) (3.80-4.90) g/dL Nuprf-4-Haovjbwfn (0.60-1.00) g/dL Beta Globulins (0.60-1.30) g/dL Gamma Globulins (0.70-1.50) g/dL Assessment and Plan Plan: Assessment: 1. Acute kidney injury secondary to ATN secondary to hypercalcemia. Renal function stable today. Baseline creatinine near 1. 2. Hypercalcemia. Etiology not clear. Nuclear scan of the parathyroid did not reveal clear adenoma. Vitamin D level 41. Repeat PTH is 58 which is definitely high in the setting of hypercalcemia. KAREEN level now low. Vit D 41.8. 1,25D3 level 11. There is concern for malignancy - immunofixation studies reveal IgG Bence-Sidhu protein. 3. UTI. Urine culture positive for E. coli. Maintain on IV antibiotics. 4. Benign hypertension. Controlled. 5. Anemia. Iron replete. 6. Hypomagnesemia from poor oral intake and diuresis. Better. 7. Volume overload secondary to IV fluids. IV fluids discontinued. 8. Hypokalemia from poor oral intake. Plan: Patient has decided not to pursue further treatments. She is to go home with hospice today.
--- NOTE | 2018-12-19 09:56 | P.DS ---
Providers Date of admission: 12/13/18 01:25 Attending physician: Jonathan Headley Consults: 12/13/18 01:50 Consult Physician Stat Consulting Provider: Jaquan Aguillon Consult Reason/Comments: superior pubic rami fracture - ambulatory Do you want consulting provider notified?: Yes, Notify in am 12/13/18 12:09 Consult Physician Routine Consulting Provider: Angela Ag Consult Reason/Comments: Acute renal failure/ hypercalcemia Do you want consulting provider notified?: Yes 12/14/18 14:52 Consult Physician Routine Consulting Provider: Fareed Teran Consult Reason/Comments: Weakness, recent fall at home Do you want consulting provider notified?: Yes Primary care physician: Alesha Robison [facility] Course: 88 yo female who is brought to the ED today by her daughter for evaluation of generalized weakness. Patient reports that recently she has had no appetite she has not been eating or drinking well she reports that she has occasional bouts of nausea and no desire to eat or drink. She states that yesterday she was walking with her walker when she began to feel very weak, she reports her legs felt like they got all zigzag and then she fell into a sitting position. She states that today she is having some pain in her tailbone. Patient also states she is concerned because she just gotten so weak. Her grandson who is a nurse came over to see her today and stated that he was concerned she was dehydrated and needed to come to the hospital. She reports that she has multiple medical problems and takes no medications. 12/15/2018 Patient is seen for follow-up at bedside; patient has no specific complaints at this time Vital signs are stable with a temperature of 97.5 and blood pressure of 166/76 Patient's lab work today shows worsening of renal function with creatinine escalating from 1.9-2.2; calcium level is increased to 15.1 compared to 14.7 yesterday; intact parathormone is within normal limits at 29.6; dose of Sensipar has been increased to 90 mg daily and calcitonin is admitted; we will check vitamin D, 125 vitamin D3, PTH related peptide and parathyroid nuclear scan; repeat parathyroid level has been recommended by nephrology 12/16/2018 Patient is clinically doing well but that continues to have elevated serum calcium which has come down from about 17 to now around 12. Patient's creatinine is around 2.3 patient acute renal failure is secondary to hypercalcemia. Pending sedum and urine electrophoresis. Concern is malignancy because of highly elevated serum calcium. Patient had a parathyroid scan which did not show any parathyroid adenoma. 12/17/2018 No cigarette in overnight events serum culture continue to improve. Had lengthy discussion with nephrology as well as her grandson. Serum protein electrophoresis is pending. No aggressive measures but will order CAT scan of the whole body as a part of skeletal survey for multiple myeloma. Plan is to treat her serum calcium and if her overall condition worsens down the line patient will be palliative care or hospice at that time. 12/18/2018 Her serum calcium and up a bit. Patient is bit lethargic today I did order a skeletal survey yesterday which showed multiple lesions consistent with multiple myeloma. Urine showed [place] on proteins and patient has IgG lambda paraprotein which is also consistent with multiple myeloma. Discussed the patient patient is not willing to pursue further except for hospice hospice will be consulted will discuss with all the family members later today. 12/19/2018 Had family meeting yesterday patient will be discharged home with home hospice. Terminal diagnoses being multiple myeloma PHYSICAL EXAMINATION: GENERAL: The patient is alert and oriented x3, not in any acute distress. Well developed, well nourished. HEENT: Pupils are round and equally reacting to light. EOMI. No scleral icterus. No conjunctival pallor. Normocephalic, atraumatic. No pharyngeal erythema. No thyromegaly. CARDIOVASCULAR: S1 and S2 present. No murmurs, rubs, or gallops. PULMONARY: Chest is clear to auscultation, no wheezing or crackles. ABDOMEN: Soft, nontender, nondistended, normoactive bowel sounds. No palpable organomegaly. MUSCULOSKELETAL: No joint swelling or deformity. EXTREMITIES: No cyanosis, clubbing, or pedal edema. NEUROLOGICAL: Gross neurological examination did not reveal any focal deficits. SKIN: No rashes. Assessment and Plan Plan: -Acute renal failure: Secondary to hypercalcemia. Patient does appear to have multiple myeloma , patient is being discharged home with home hospice -Hypercalcemia secondary to possibly multiple myeloma. -Pelvic fracture -Possible urinary tract infection -Hypothyroidism -Accelerated hypertension Patient Condition at Discharge: Serious Plan - Discharge Summary New Discharge Prescriptions: New Atropine Ophth Soln 1% 5Ml [Isopto Atropine 1% 5Ml] 2 drop SUBLINGUAL Q4HR PRN #1 bottle PRN Reason: Secretions LORazepam [Ativan] 1 mg PO Q4HR PRN 3 Days #20 tab PRN Reason: Anxiety MORPHINE ORAL DEREK CONC 20mg/mL [Roxanol Oral Soln Conc 20MG/ML] 5 mg PO Q4H PRN #30 ml PRN Reason: Pain Discontinued Aspirin 81 mg PO DAILY Meloxicam 7.5 mg PO DAILY Isosorbide Mononitrate ER [Imdur] 60 mg PO DAILY Donepezil [Aricept] 10 mg PO DAILY Levothyroxine Sodium [Synthroid] 75 mcg PO MOTUWETHFRSA Ibuprofen [Motrin Ib] 200 mg PO Q4H PRN PRN Reason: Pain No Action traMADol HCL [Ultram] 50 mg PO BID PRN PRN Reason: Pain Discharge Medication List traMADol HCL [Ultram] 50 mg PO BID PRN 11/06/18 [History] Atropine Ophth Soln 1% 5Ml [Isopto Atropine 1% 5Ml] 2 drop SUBLINGUAL Q4HR PRN # 1 bottle 12/19/18 [Rx] LORazepam [Ativan] 1 mg PO Q4HR PRN 3 Days #20 tab 12/19/18 [Rx] MORPHINE ORAL DEREK CONC 20mg/mL [Roxanol Oral Soln Conc 20MG/ML] 5 mg PO Q4H PRN #30 ml 12/19/18 [Rx] Follow up Appointment(s)/Referral(s): Alesha Robison MD [Primary Care Provider] - 1-2 days Activity/Diet/Wound Care/Special Instructions: [facility] hosp[facility] being [facility] Terminal diagnosis: Multiple myeloma Discharge Disposition: HOME WITH HOSPICE
[2018-12-19 10:38] VITALS: RESP 18
[2018-12-19] MEDS: traMADol 50 MG TAB PO PRN (12:41)
[2018-12-19] MEDS: ACETAMINOPHEN TAB 325 MG TAB PO PRN (15:49)
[2018-12-19 16:04] VITALS: BP 125/57; PULSE 92; TEMP 100.3
== END 2018-12-19 17:48 | disposition hospice, home (50) | DRG 840 ==
LOC: EC 23:24 → 3SCARD 12-13 01:25
PROVIDERS: ADMIT Hospitalist; ATTEND Hospitalist
DX: C90.00 Multiple myeloma not having achieved remission (principal); N17.0 Acute kidney failure with tubular necrosis; S32.591A Other specified fracture of right pubis, initial encounter for closed fracture; N39.0 Urinary tract infection, site not specified; E86.0 Dehydration; E87.70 Fluid overload, unspecified; E83.42 Hypomagnesemia; M19.90 Unspecified osteoarthritis, unspecified site; E21.0 Primary hyperparathyroidism; W18.39XA Other fall on same level, initial encounter; Y92.009 Unspecified place in unspecified non-institutional (private) residence as the place of occurrence of the external cause; K59.00 Constipation, unspecified; M81.0 Age-related osteoporosis without current pathological fracture; R26.2 Difficulty in walking, not elsewhere classified; R41.3 Other amnesia; I10 Essential (primary) hypertension; D64.9 Anemia, unspecified; B96.20 Unspecified Escherichia coli [E. coli] as the cause of diseases classified elsewhere; E87.6 Hypokalemia; Z51.5 Encounter for palliative care; M51.36 Other intervertebral disc degeneration, lumbar region; E03.9 Hypothyroidism, unspecified; Z66 Do not resuscitate; Z79.82 Long term (current) use of aspirin; Z79.899 Other long term (current) drug therapy; Z79.890 Hormone replacement therapy; Z90.49 Acquired absence of other specified parts of digestive tract; Z91.81 History of falling; Z87.440 Personal history of urinary (tract) infections; Z85.828 Personal history of other malignant neoplasm of skin; Z88.2 Allergy status to sulfonamides; Z88.8 Allergy status to other drugs, medicaments and biological substances; Z82.3 Family history of stroke; Z80.9 Family history of malignant neoplasm, unspecified
CPT/HCPCS: 36415; 71046; 72100; 72220; 74018; 77075; 78071; 80048; 80053; 81001; 82164; 82306; 82550; 82607; 82652; 82728; 83519; 83540; 83550; 83735; 83970; 84132; 84165; 84443; 84484; 85025; 85027; 85610; 85730; 86334; 86335; 87077; 87086; 87186; 93005; 96361; 96365; 99284